=== PATIENT | male | born 1945 | race Caucasian/White ===

== ENCOUNTER → 2016-02-25 | Outpatient (CLI) | payer OTHER ==
[~2016-02-25] MED LIST: ACET-1138 PO; AMLO-110 PO; ASPEC81 PO; ASPI81TA28 PO; ATEN-173 PO; CLB200 PO; DOXY1TAB6 PO; FLVHFA44 INH; LORA-741 PO; ONDA8TAB6 PO; OXYSR10 PO; PRLSR20 PO; RXC5 PO
[2016-02-25 12:54] LABS: BASO % 1.3 %; BASO ABS # 0.07 K/uL (0-0.2); COMPLETE YES; HEMATOCRIT 43.2 % (42-52); IG% 0.4 %; LYMPH % 21.8 %; LYMPH ABS # 1.13 K/uL (1.2-3.4); MEAN CELL VOLUME 87.6 fL (80-100); MEAN CORPUSCULAR HGB CONC 34.3 g/dl (32-36); MEAN PLATELET VOLUME 9.3 fL (7.4-10.4); MONO % 11.6 %; NEUT % 58.9 %; PLATELET COUNT 191 K/uL (130-400); RED BLOOD COUNT 4.93 M/uL (4.7-6.1); WHITE BLOOD COUNT 5.19 K/uL (4.8-10.8)
[2016-02-25 13:06] LABS: ESTIMATED AVERAGE GLUCOSE 128 mg/dl; HA1C FLAG Normal (Normal)
[2016-02-25 13:19] LABS: ALT/SGPT 26 U/L (12-78); AST/SGOT 23 U/L (15-37); BLOOD UREA NITROGEN 16 mg/dl (7-18); BUN/CREATININE RATIO 16.8 (10-20); CALCIUM 8.4 mg/dl (8.5-10.1); CARBON DIOXIDE 29 mmol/L (21-32); CHLORIDE 106 mmol/L (98-107); CREATININE 0.96 mg/dl (0.60-1.40); GLUCOSE 116 mg/dl (70-99); SODIUM 143 mmol/L (136-145)
[2016-02-25 13:23] LABS: ALB/GLOB RATIO 0.9 (0.9-2); ALKALINE PHOSPHATASE 99 U/L (45-117)
--- NOTE | 2016-02-29 13:03 | CODING QUERY MEDICAL NECESSITY ---
SUPPORTING DIAGNOSIS NEEDED A supporting diagnosis is required for the test/procedure performed on this patient in order for us to be reimbursed by the patient's insurance. Please provide a supporting diagnosis for the following test/procedure listed below next to the test name along with your signature. *If there is no additional diagnosis for this patient that would support the following test/procedure please document that below next to the test/procedure. Test(s)/Procedure(s) that require a supporting diagnosis: DOS 02/24 * Hba1c DIAGNOSIS: Provider Signature: Date: Thank you Michelle Srivastava Health Information Management Once completed, please kindly fax back to [phone] For questions please call [phone]
== END | disposition home or self-care (01) ==
LOC: C.LAB 11:26
PROVIDERS: ATTEND Family Medicine
DX: I25.10 Atherosclerotic heart disease of native coronary artery without angina pectoris (principal); E78.5 Hyperlipidemia, unspecified; R73.03 Prediabetes; R97.20 Elevated prostate specific antigen [PSA]

== ENCOUNTER 2016-03-18 05:26 | Inpatient (IN) | payer OTHER ==
[2016-02-25 11:50] VITALS: BMI 35.0
--- NOTE | 2016-02-25 12:17 | PAT Medication Instructions ---
Service Date Feb 25, 2016. Current Home Medication List Amlodipine (Norvasc), 5 MG PO QAM Aspirin (Aspirin Ec), 81 MG PO QAM Atenolol (Tenormin), 25 MG PO QAM Doxycycline Hyclate (Doxycycline Hyclate), 1 TAB PO BID Fluticasone Propionate (Flovent Hfa), 2 PUFFS INH BID PRN for PRN Lorazepam (Ativan), 0.5 MG PO TID PRN for Anxiety Omeprazole (Prilosec), 20 MG PO QAM Medication Instructions For Your Scheduled Surgery Doxycycline Hyclate (Doxycycline Hyclate), 1 TAB PO BID (to be completed prior to surgery) - Take the following medications the morning of surgery with a sip of water: Omeprazole (Prilosec), 20 MG PO QAM Lorazepam (Ativan), 0.5 MG PO TID PRN for Anxiety Fluticasone Propionate (Flovent Hfa), 2 PUFFS INH BID PRN for PRN Amlodipine (Norvasc), 5 MG PO QAM Aspirin (Aspirin Ec), 81 MG PO QAM (okay to take per surgeon instructions) Atenolol (Tenormin), 25 MG PO QAM - Take the following medications as scheduled the night before surgery: Lorazepam (Ativan), 0.5 MG PO TID PRN for Anxiety Fluticasone Propionate (Flovent Hfa), 2 PUFFS INH BID PRN for PRN If you have any questions please call us at [phone] (Jocelynn Yoo PA-C) or [phone] or [phone]
--- NOTE | 2016-02-25 12:50 | DIAGNOSTIC IMAGING REPORT ---
CHEST PREADMISSION(PA/LAT) CLINICAL HISTORY: PAT preoperative evaluation COMPARISON STUDY: No previous studies for comparison. FINDINGS: Prior median sternotomy. Heart is enlarged. Diaphragms smooth. Lungs are clear. IMPRESSION: Cardiomegaly post median sternotomy. No acute process. Electronically signed by: Addy Otoole M.D. 02/25/2016 12:48 PM
[2016-02-25 13:05] LABS: PARTIAL THROMBOPLASTIN RATIO 1.2; PROTHROMBIN TIME (PATIENT) 10.6 SECONDS (9.0-12.0)
--- NOTE | 2016-03-13 22:06 | HISTORY & PHYSICAL EXAMINATION ---
DATE OF ADMISSION: 03/18/2016 PREOPERATIVE HISTORY AND PHYSICAL EXAMINATION SUBJECTIVE CHIEF COMPLAINT: Left knee pain. HISTORY OF PRESENT ILLNESS: The patient is a 70-year-old male who complains of left knee pain. His knee pain and stiffness has been occurring for several years that has been progressively getting worse. He describes the pain as aching and sharp. He has tried cortisone and visco injections in the past with little relief. He has tried NSAIDs as well as physical therapy with no relief. He wishes to proceed with a total left knee arthroplasty. PAST MEDICAL HISTORY: Hypertension, hypercholesterolemia, osteoarthritis, BPH, coronary artery disease. PAST SURGICAL HISTORY: Cardiac bypass surgery in 1995, two stents in 2014, fundoplication x2, cholecystectomy, inguinal hernia surgery. SOCIAL HISTORY: He denies alcohol use. He denies smoking or tobacco product use. He denies IV drug use. He lives in a 1-story house. 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 FAMILY HISTORY: Father has a history of heart attacks. MEDICATIONS: Aspirin 81 mg 1 tab daily, atenolol 25 mg 1 tab daily, Prilosec 20 mg 1 capsule daily, Ambien 5 mg as needed for sleep, lorazepam 0.5 mg 3 times a day as needed, Welchol 625 mg, amlodipine 5 mg 1 tab daily, Flovent 110 mcg. ALLERGIES: ALL STATINS, Lisinopril, Pravachol ZETIA, VASOTEC. REVIEW OF SYSTEMS: He denies fevers, chills, headaches, weight loss, double vision, blurry vision, sore throat, hearing loss, tremors, dizziness, numbness or tingling, tired, thirsty, hot and cold intolerance, abdominal pain, nausea, vomiting, diarrhea, heartburn, chest pain following into the legs or feet, frequency going to the bathroom, pain or burning with urination, incontinence, wheezing, cough, shortness of breath, depression, thoughts to harm herself or harm others, nervousness or anxiousness. He is positive for joint pain, stiffness and swelling of the left knee. OBJECTIVE PHYSICAL EXAMINATION: GENERAL APPEARANCE: The patient is a 70-year-old male sitting in no acute distress, well dressed, well nourished. He is awake, alert and oriented x3. VITAL SIGNS: He is 5 feet 10 inches, 258 pounds, blood pressure 128/76. HEENT: Extraocular movements intact, PERRLA, mucosa is moist. No septal deviation. NECK: Supple, no lymphadenopathy, no JVD, no thyromegaly. HEART: Irregular rate and rhythm but no murmurs or gallops. LUNGS: Clear to auscultation with no wheezing or rhonchi. ABDOMEN: Soft, nontender, nondistended. Normal bowel sounds, no hepatosplenomegaly. EXTREMITIES: Paying particular attention to his left knee, he has pain along the medial joint line. He has his range of motion active flexion to 0-90 degrees, active extension to 0 degrees. He has a mildly positive valgus stress test due to ligament laxity. NEUROLOGIC: Cranial nerves II-XII are intact. Pulses were compared bilaterally and were symmetrical . IMAGING: X-rays of the left knee shows osteophyte formation, medial joint space narrowing, subchondral sclerosis. IMPRESSION: Severe end-stage osteoarthritis of the left knee. PLAN: The patient is scheduled for a left knee arthroplasty. He has failed conservative measures such as NSAIDs, physical therapy, cortisone injections and visco supplementation. He wishes to proceed with the procedure. Risks and benefits were discussed that were included but not limited to blood loss, nerve damage, blood vessel damage, DVT, increased pain, failure to relieve pain, revision surgeries, and anesthesia risks. He understands these risks and wishes to proceed. All questions were answered to his satisfaction. TEX
[2016-03-18] VITALS (8 sets, daily range): BP systolic 129–173; BP diastolic 56–91; PULSE 54–75; TEMP 36.4–36.9; O2SAT 92–96; Ht 182.9 cm; Wt 118.3 kg
[~2016-03-18] VITALS: Ht 182.9 cm; Wt 118.3 kg
[~2016-03-18 05:26] MED LIST changes: -ACET-1138 PO; -ASPEC81 PO; -CLB200 PO; -ONDA8TAB6 PO; -OXYSR10 PO; -RXC5 PO
[2016-03-18] MEDS ORDERED: LACTATED RINGER'S 1000ML 500 ML IV ONE (06:00)
[2016-03-18] MEDS ORDERED: ROPIVACAINE 5MG/ML 30 ML 150 MG, BUPIVACAINE/EPINEPHR 0.5% MPF 30 ML, KETOROLAC TROMETH... INFIL SCH ×7 (06:00)
[2016-03-18] MEDS ORDERED: LACTATED RINGER'S 1000ML 1,000 ML IV SCH (06:00)
[2016-03-18] MEDS ORDERED: LACTATED RINGER'S 1000ML IV SCH (06:00)
[2016-03-18] MEDS ORDERED: GABAPENTIN 300 MG CAP PO SCH (06:00)
[2016-03-18] MEDS ORDERED: FAMOTIDINE 20 MG TAB PO SCH (06:00)
[2016-03-18] MEDS ORDERED: CEFAZOLIN 2000 MG/60 ML D5W 60 ML IV SCH (06:00)
[2016-03-18] MEDS ORDERED: DEXAMETHASONE 4 MG TAB PO SCH (06:00)
[2016-03-18] MEDS ORDERED: ACETAMINOPHEN 500 MG TAB PO SCH (06:00)
[2016-03-18] MEDS ORDERED: CeleBREX 200 MG CAP PO SCH (06:00)
[2016-03-18] MEDS ORDERED: METOCLOPRAMIDE HCL 10 MG TAB PO SCH (06:00)
[2016-03-18] MEDS ORDERED: BUPIVACAINE 0.5 % 5 MG/1 ML PF 10ML VIAL ONE (06:26)
[2016-03-18] MEDS ORDERED: DEXAMETHASONE SOD INJ 4 MG/ML VIAL ONE ×2 (06:26→06:40)
[2016-03-18] MEDS ORDERED: BUPIVACAINE/EPINEPHRINE 0.25% 1:200,000 30 ML VIAL ONE (06:26)
[2016-03-18] MEDS ORDERED: ORTHO JOINT ANESTHETIC ONE (06:38)
[2016-03-18] MEDS ORDERED: MIDAZOLAM HCL 1 MG/ML 2ML VIAL ONE ×2 (06:40→07:43)
[2016-03-18] MEDS ORDERED: ONDANSETRON INJ 2 MG/ML 2 ML VIAL ONE (06:40)
[2016-03-18] MEDS ORDERED: LIDOCAINE HCL 2% 2 ML VIAL (20MG/ML) ONE (06:40)
[2016-03-18] MEDS ORDERED: FENTANYL CITRATE INJ 50 MCG/1 ML 2 ML VIAL ONE (06:40)
[2016-03-18] MEDS ORDERED: PROPOFOL IV EMULSION 10 MG/ML 20 ML VIAL IV ONE (06:40)
--- NOTE | 2016-03-18 06:49 | History & Physical Bridge Note ---
H&P Re-Evaluation Bridge Note: I have examined the patient, reviewed the History & Physical and in the interval since the performance of the History & Physical I have noted the following changes of clinical significance: No changes noted
[2016-03-18] MEDS ORDERED: NURSING VERBAL MED ORDER STA (07:19)
[2016-03-18] MEDS: TRANEXAMIC ACID AMP 1,000 MG in NSS 100ML IV SCH ×2 (08:00→08:10)
[2016-03-18] MEDS ORDERED: BACITRACIN 50000 UNIT VIAL IR ONE (08:52)
[2016-03-18] MEDS ORDERED: POVIDONE-IODINE OP SOLN 30 ML BTL TOP ONE (08:52)
--- NOTE | 2016-03-18 08:59 | [facility] Post Operative Brief Note ---
Immediate Operative Summary Operative Date Mar 18, 2016. Pre-Operative Diagnosis Severe End-Stage Osteoarthritis of Left Knee Post-Operative Diagnosis Same as preoperative Procedure(s) Performed Left Total Knee Arthroplasty, Cemented Surgeon Dr. Santosh Marin Machine Carton Marker Surgeon(s) Steve Minor PA-C, Tree Hurd PA-C Estimated Blood Loss 20ml Findings above Specimens A.) Left Knee Bone and Tissue Fragments Drains 2 hemovac Anesthesia spinal Complication(s) None Disposition Recovery Room / PACU
[2016-03-18] MEDS ORDERED: ZOLPIDEM TARTRATE 5 MG TAB PO PRN (09:00)
[2016-03-18] MEDS ORDERED: MoRPHine SULFATE 2 MG/ML CARP IV PRN (09:00)
[2016-03-18] MEDS ORDERED: FLUTICASONE PROP HFA INH 44 MCG INHALER INH PRN (09:00)
[2016-03-18] MEDS ORDERED: ALUMINUM/MAGNESIUM/SIMETH (MAALOX MAX) 30 ML UDC PO PRN (09:00)
[2016-03-18] MEDS ORDERED: OXYCODONE HCL IR 5 MG TAB (IMMEDIATE RELEASE) PO PRN (09:00)
[2016-03-18] MEDS ORDERED: DiphenhydrAMINE HCL 50 MG/ML VIAL IV PRN (09:00)
[2016-03-18] MEDS ORDERED: NON-FORMULARY MEDICATION (Omeprazole (Prilosec) 20 MG) PO SCH (09:00)
[2016-03-18] MEDS ORDERED: ONDANSETRON INJ 2 MG/ML 2 ML VIAL IV PRN ×2 (09:00→09:30)
[2016-03-18] MEDS ORDERED: TAMSULOSIN HCL 0.4 MG CAP PO PRN (09:00)
[2016-03-18] MEDS ORDERED: LORAZEPAM 0.5 MG TAB PO PRN (09:00)
[2016-03-18] MEDS ORDERED: METOCLOPRAMIDE HCL INJ 5 MG/ML 2 ML VIAL IV PRN (09:00)
[2016-03-18] MEDS ORDERED: MAGNESIUM HYDROXIDE SUSP 30 ML UDC PO PRN (09:00)
[2016-03-18] MEDS ORDERED: FENTANYL CITRATE INJ 50 MCG/1 ML 2 ML VIAL IV PRN (09:30)
[2016-03-18] MEDS ORDERED: ATROPINE SULFATE 0.1 MG/ML 5ML SYR IV PRN (09:30)
[2016-03-18] MEDS ORDERED: EpHEDrine SULFATE INJ 50 MG/ML AMP IV PRN (09:30)
--- NOTE | 2016-03-18 09:49 | Anesthesiology Progress Note ---
Anesthesia Post Op Note Date & Time Mar 18, 2016 at 09:49 Vital Signs Pain Intensity: 0 Vital Signs Past 12 Hours Date Time Temp Pulse Resp B/P Pulse Ox O2 Delivery O2 Flow Rate FiO2 03/18/16 09:40 52 16 114/69 98 Nasal Cannula 2 03/18/16 09:30 36.2 59 16 129/68 96 Nasal Cannula 2 03/18/16 06:19 36.9 54 20 173/91 95 Room Air Notes Mental Status: alert / awake / arousable, participated in evaluation Pt Amnestic to Procedure: Yes Nausea / Vomiting: adequately controlled Pain: adequately controlled Airway Patency, RR, SpO2: stable & adequate BP & HR: stable & adequate Hydration State: stable & adequate Neuraxial Anesthesia: was administered, sensory block is resolving Anesthetic Complications: no major complications apparent
--- NOTE | 2016-03-18 10:04 | OPERATIVE REPORT ---
DATE OF OPERATION: 03/18/2016 PREOPERATIVE DIAGNOSIS: Left knee degenerative joint disease. POSTOPERATIVE DIAGNOSIS: Same. PROCEDURE: Left total knee arthroplasty. SURGEON: Dr. Marin. SLAG PRODUCTION WORKER: Tree Hurd PA-C and Steve Minor PA-C who was necessary for assistance of procedure with positioning, prepping, draping, retraction and closure. ANESTHESIA: Spinal with adductor canal block. SPECIMEN: Bone and tissue. DRAINS: One medium Hemovac. IMPLANTS: Flores \T\ Nephew Journey version 2, femur 7, tibia 6, poly 9, patella 32 oval. COMPLICATIONS: None. ESTIMATED BLOOD LOSS: 20 mL. INDICATIONS: The patient is a 70-year-old male with longstanding degenerative joint disease of bilateral knees. He has failed conservative measures including cortisone injection, physical therapy and anti-inflammatory medications. Failing conservative measures, he wished to proceed with left total knee arthroplasty. Risks, benefits, and alternatives of surgery including but not limited to infection, DVT, pain, sepsis, need for urgent surgery, failure to relieve all symptoms, damage to blood vessels, damage to nerves, risks of anesthesia discussed with the patient and he wished to proceed. OPERATION AND FINDINGS: DESCRIPTION OF PROCEDURE: The patient was identified, laterality was confirmed and marked. He received a preoperative antibiotic as well as a spinal and adductor canal block. Left lower extremity had a well-padded tourniquet applied and the limb was prepped and draped in usual sterile manner with ChloraPrep. Limb was exsanguinated and tourniquet was inflated. I made a standard anterior incision sharply incising the skin utilizing Bovie electrocautery to achieve hemostasis. I made a medial parapatellar arthrotomy, mobilized the patella laterally. I excised the anterior horns of the medial and lateral menisci back. I removed the fat pad and then pinned in place a distal femoral cutting guide, which was a patient matched guide, made my distal femoral resection and then pinned in place a size 5-in-1 cutting guide, made my anterior, posterior chamfer cuts. I then removed the remaining portions of the meniscus as well as the cruciates. I then pinned into place my tibial cutting guide, made my tibial resection and then sized and positioned for a size 6 tibia cut for the post and pinned this into place. I then removed the posterior osteophytes off the femur. He was relatively tight, so we elevated some of the posterior capsule off the backside of the femur. He had a fair number of loose bodies posteriorly that were removed. I then placed the trial femur into place, cut for the trochlear component and then trialed with a 9 poly, had good range of motion, good stability with a 9 poly. I then prepared the patella with a freehand cut and then sized and drilled for a size 32 patella. We had good tracking to the patella. No lateral release was required. All the trial components were removed. Wound was thoroughly irrigated. The deep tissues were anesthetized with an Orthomix solution and then with Simplex HV with gent cement. We cemented the definitive components. This was Flores \T\ Nephew Journey version 2, femur size 7, tibia size 6, poly 9, patella 32 oval. Betadine soak was performed. The drain was then placed. The arthrotomy was closed with interrupted #1 Vicryl sutures, subcutaneous tissue with interrupted 2-0 Vicryl suture and skin with elver. Sterile dressing was applied and tourniquet was released. All needle and sponge counts were correct at the end of the procedure. The patient was transferred to the PACU in stable condition without apparent complication. I attest to the content of the Intraoperative Record and any orders documented therein. Any exceptio ns are noted below.
--- NOTE | 2016-03-18 10:35 | DIAGNOSTIC IMAGING REPORT ---
TWO VIEWS LEFT KNEE CLINICAL HISTORY: Postoperative examination. FINDINGS: AP and crosstable lateral portable views of the left knee are obtained. A left knee arthroplasty is in near anatomic alignment. There has been undersurface remodeling of the patella. No acute fracture is seen. There are expected postoperative changes around the knee including skin clips, a surgical drain, soft tissue edema, and subcutaneous gas. IMPRESSION: Expected postoperative changes status post left knee arthroplasty. No acute fracture is seen. Electronically signed by: Thomas Jansen M.D. 03/18/2016 10:33 AM Dictated Date/Time: 03/18/2016 10:33 AM
[2016-03-18] MEDS: CEFAZOLIN IV 2,000 MG in DEXTROSE 5% 50ML 50 ML IV SCH ×2 (13:14→21:57)
[2016-03-18] MEDS: FERROUS GLUCONATE 324 MG TAB PO SCH ×2 (13:15→18:13)
[2016-03-18] MEDS: KETOROLAC TROMETHAMINE 15 MG/ML VIAL IV. SCH ×2 (13:15→18:13)
[2016-03-18] MEDS: ACETAMINOPHEN 500 MG TAB PO SCH ×2 (13:16→21:58)
[2016-03-18] MEDS: D5W AND 1/2NSS + 20MEQ KCL 1,000 ML IV SCH (13:18)
[2016-03-18] MEDS: DOCUSATE SODIUM 100 MG CAP PO SCH (21:56)
[2016-03-18] MEDS: ASPIRIN 81 MG ECTAB PO SCH (21:57)
[2016-03-18] MEDS: OXYCODONE HCL 10 MG TABCR (OXYCONTIN) PO SCH (21:57)
[2016-03-19] MEDS: D5W AND 1/2NSS + 20MEQ KCL 1,000 ML IV SCH ×2 (00:03→13:41)
[2016-03-19] MEDS: KETOROLAC TROMETHAMINE 15 MG/ML VIAL IV. SCH ×2 (00:04→05:20)
[2016-03-19 03:45] VITALS: BP 135/60; PULSE 69; TEMP 36.4; O2SAT 93
[2016-03-19] MEDS: ACETAMINOPHEN 500 MG TAB PO SCH ×3 (05:20→21:08)
[2016-03-19 06:27] LABS: HEMATOCRIT 36.6 % (42-52); MEAN CELL VOLUME 86.5 fL (80-100); MEAN CORPUSCULAR HGB CONC 34.7 g/dl (32-36); MEAN PLATELET VOLUME 9.8 fL (7.4-10.4); PLATELET COUNT 185 K/uL (130-400); RED BLOOD COUNT 4.23 M/uL (4.7-6.1); WHITE BLOOD COUNT 14.79 K/uL (4.8-10.8)
[2016-03-19 06:58] LABS: BUN/CREATININE RATIO 19.1 (10-20); CREATININE 0.99 mg/dl (0.60-1.40); POTASSIUM 3.8 mmol/L (3.5-5.1)
[2016-03-19] MEDS ORDERED: DEXAMETHASONE 4 MG TAB PO ONE (07:30)
[2016-03-19 08:18] VITALS: BP 122/58; PULSE 65; TEMP 36.7; O2SAT 96
[2016-03-19] MEDS: AMLODIPINE BESYLATE 5 MG TAB PO SCH (09:07)
[2016-03-19] MEDS: ASPIRIN 81 MG ECTAB PO SCH ×2 (09:07→21:09)
[2016-03-19] MEDS: MULTIVITAMIN TAB PO SCH (09:08)
[2016-03-19] MEDS: PANTOprazole SOD 40 MG TAB PO SCH (09:09)
[2016-03-19] MEDS: OXYCODONE HCL 10 MG TABCR (OXYCONTIN) PO SCH ×2 (09:10→21:07)
[2016-03-19] MEDS: DOCUSATE SODIUM 100 MG CAP PO SCH ×2 (09:11→21:09)
[2016-03-19] MEDS: FERROUS GLUCONATE 324 MG TAB PO SCH ×3 (09:11→18:17)
[2016-03-19 09:31] VITALS: O2SAT 96
[2016-03-19 11:59] VITALS: BP 128/74; PULSE 60; TEMP 36.6; O2SAT 96
--- NOTE | 2016-03-19 13:11 | Orthopedic Progress Note ---
Orthopedic Progress Note Date of Service Mar 19, 2016. Subjective Post OP Day: 1 Reports: feeling well, pain controlled w PO medications, Denies: SOB, chest pain , light headedness, nausea / vomiting Objective calves soft nontender, N/V intact, capillary refill less than 2 sec., dressing C /D/I, A&O x3, toes mobile, hemovac drainage Date Time Temp Pulse Resp B/P Pulse Ox O2 Delivery O2 Flow Rate FiO2 03/19/16 11:59 36.6 60 16 128/74 96 Room Air 03/19/16 09:31 96 Room Air 03/19/16 08:18 36.7 65 16 122/58 96 Room Air 03/19/16 07:45 Room Air 03/19/16 03:45 36.4 69 18 135/60 93 Room Air 03/19/16 00:01 Room Air 03/18/16 23:12 36.6 75 18 144/79 94 Room Air 03/18/16 19:39 36.4 73 18 132/78 95 Room Air 03/18/16 16:00 Room Air 03/18/16 15:02 36.4 60 16 153/70 94 Room Air 03/18/16 13:34 36.5 59 16 143/56 95 Room Air Laboratory Results 24 Hours: Test 03/19/16 05:35 Hematocrit 36.6 % Hemoglobin 12.7 g/dL Assessment & Plan Assessment: POD#1 s/p Left TKA Inhouse Planning Pain Management: Celebrex, Oxycontin, PO Tylenol, Oxy IR DVT Prophylaxis: TEDs, SCDs, ASA Discharge Planning Discharge Planning: home with oppt (plan for ) Therapy: Physical Therapy, Occupational Therapy (Plan for discharge tomorrow with OPPT)
[2016-03-19 15:18] VITALS: BP 142/80; PULSE 68; TEMP 36.5; O2SAT 93
[2016-03-19] MEDS: CeleBREX 200 MG CAP PO SCH (21:08)
[2016-03-19] MEDS ORDERED: CLB200 PO (21:42)
[2016-03-19] MEDS ORDERED: ACET-1138 PO (21:42)
[2016-03-19] MEDS ORDERED: OXYSR10 PO (21:42)
[2016-03-19] MEDS ORDERED: RXC5 PO (21:42)
[2016-03-19] MEDS ORDERED: ONDA8TAB6 PO (21:42)
[2016-03-19] MEDS ORDERED: ASPEC81 PO (21:42)
--- NOTE | 2016-03-19 21:44 | Discharge Instructions ---
Discharge Instructions Admission Reason for Admission: Left Knee Osteoarthrtis Discharge Discharge Diagnosis / Problem: Left Total Knee Arthroplasty Discharge Goals Goal(s): Decrease discomfort, Improve function, Increase independence, Therapeutic intervention Activity Recommendations Activity Limitations: per Instructions/Follow-up section ACTIVITY RECOMMENDATIONS: SELF CARE INSTRUCTIONS AFTER TOTAL KNEE REPLACEMENT A. You may need to continue a physical therapy program after discharge from the hospital. There are several options available to you. Your doctor will assist you in selecting the best one for you. 1. An out-patient facility 2 to 3 times a week for therapy or home therapy. 2. Continue working on all exercises taught to you in the hospital. Your goals should be to increase bending of your knee to 90 degrees and beyond and to fully straighten your knee. B. You may progress at your own pace from walking with a walker or crutches to a cane; then to no assistive devices. C. Make walking a part of your daily routine. Be up as much as comfortable with rest periods throughout the day. Rest with leg elevation is very important. Use the ice wrap frequently for the first 3-4 weeks. D. There are no restrictions on activities. You may ride in a car, shop, participate in medical insurance coder and all social activities. E. Wear the long elastic stockings (MIKIE hose) 20 hours a day for 2 weeks after surgery. They can be removed several times a day for laundering and for a bath. F. You may shower, no tub baths until cleared by your doctor. SPECIAL CARE INSTRUCTIONS: VERY IMPORTANT TO READ AND REVIEW A. There are a few signs you need to watch for after you are home. Call [facility] [place] if you notice any of the followin. Increased severe knee pain. Some pain is expected especially when you exercise. 2. Increased swelling in your leg or knee; pain or swelling of the calf muscle in either lower leg. 3. Any fluid drainage from the incision. 4. Shortness of breath or chest pain. B. Please call [facility] at if you have any concerns or questions about your operation or recovery. The doctor or his nurse will return your call promptly. C. You must take antibiotics before dental work, bladder, bowel or other surgery. Your doctor will provide you with a permanent care to carry describing this precaution. IMPORTANT: * REMEMBER TO TAKE ASPIRIN, 81 MG, TWICE DAILY FOR 4 WEEKS UNLESS OTHERWISE DIRECTED. THIS IS YOUR BLOOD THINNER. * HIGH RISK PATIENTS MAY BE PRESCRIBED A STRONGER BLOOD THINNER. THIS WILL BE PROVIDED AT DISCHARGE. * CALL IF INCREASED PAIN, REDNESS, DRAINAGE OR FEVER GREATER THAT 101. * WEAR MIKIE HOSE 20 HOURS PER DAY FOR 2 WEEKS. * YOU MAY HAVE A LARGE BAND-AID LIKE DRESSING (SILVERON). THIS WILL REMAIN ON YOUR INCISION FOR 7 DAYS, THEN CAN BE REMOVED. IF INCISION IS LEAKING THROUGH DRESSING, CALL THE OFFICE . FOLLOW UP VISIT: If appointment is not already scheduled: Please call [facility] [place] to make a follow-up appointment for 2 weeks after your surgery at . . Current Hospital Diet Patient's current hospital diet: Regular Diet Discharge Diet Recommended Diet: Regular Diet Procedures Procedures Performed: Left Total Knee Arthroplasty, Cemented Pending Studies Studies pending at discharge: no Laboratory Results Hemoglobin A1c Test 02/25/16 12:26 Range/Units Estimated Average Glucose 128 mg/dl Hemoglobin A1c 6.1 H 4.5-5.6 % Medical Emergencies . Who to Call and When: Medical Emergencies: If at any time you feel your situation is an emergency, please call 911 immediately. . Non-Emergent Contact Non-Emergency issues call your: Primary Care Provider . "Provider Documentation" section prepared by Lizz Mcintosh. VTE Core Measure Inpt VTE Proph given/why not?: Other Anticoagulation, T.E.D. Stockings, SCD's
[2016-03-19 23:00] VITALS: BP 147/75; PULSE 59; TEMP 36.5; O2SAT 93
[2016-03-20] MEDS: ACETAMINOPHEN 500 MG TAB PO SCH (05:24)
[2016-03-20 06:31] VITALS: BP 144/78; PULSE 66; TEMP 36.6; O2SAT 96
[2016-03-20] MEDS: FERROUS GLUCONATE 324 MG TAB PO SCH (08:41)
[2016-03-20] MEDS: ASPIRIN 81 MG ECTAB PO SCH (08:42)
[2016-03-20] MEDS: MULTIVITAMIN TAB PO SCH (08:42)
[2016-03-20] MEDS: AMLODIPINE BESYLATE 5 MG TAB PO SCH (08:42)
[2016-03-20] MEDS: PANTOprazole SOD 40 MG TAB PO SCH (08:43)
[2016-03-20] MEDS: OXYCODONE HCL 10 MG TABCR (OXYCONTIN) PO SCH (08:43)
[2016-03-20] MEDS: CeleBREX 200 MG CAP PO SCH (08:43)
[2016-03-20] MEDS: DOCUSATE SODIUM 100 MG CAP PO SCH (08:44)
--- NOTE | 2016-03-20 08:48 | Orthopedic Progress Note ---
Orthopedic Progress Note Date of Service Mar 20, 2016. Subjective Post OP Day: 2 Reports: feeling well, pain controlled w PO medications, Denies: SOB, calf pain , chest pain, light headedness Objective calves soft nontender, N/V intact, capillary refill less than 2 sec., dressing C /D/I, A&O x3, toes mobile Date Time Temp Pulse Resp B/P Pulse Ox O2 Delivery O2 Flow Rate FiO2 03/20/16 06:31 36.6 66 20 144/78 96 Room Air 03/19/16 23:00 36.5 59 16 147/75 93 Room Air 03/19/16 19:15 Room Air 03/19/16 15:18 36.5 68 20 142/80 93 Room Air 03/19/16 11:59 36.6 60 16 128/74 96 Room Air 03/19/16 09:31 96 Room Air Assessment & Plan Assessment: POD#2 s/p Left TKA Inhouse Planning Pain Management: Celebrex, Oxycontin, PO Tylenol, Oxy IR DVT Prophylaxis: TEDs, SCDs, ASA Discharge Planning Discharge Planning: home with oppt (plan for ) Therapy: Physical Therapy, Occupational Therapy Discharge Planning Notes: plan for discharge today with OPPT
[2016-03-20 09:57] VITALS: BP 144/78; PULSE 66; TEMP 36.6; O2SAT 96
--- NOTE | 2016-03-22 16:39 | DISCHARGE SUMMARY ---
ADMISSION DIAGNOSIS: Left knee osteoarthritis. DISCHARGE DIAGNOSIS: Left total knee arthroplasty. CONSULTS: None. PROCEDURES: On 03/18/2016 the patient had a left total knee arthroplasty. HISTORY OF PRESENT ILLNESS: The patient is a 70-year-old male that presented to the office with knee pain. The knee pain was chronic and nontraumatic. He had failed conservative therapy which includes NSAIDs, physical therapy, cortisone injections and viscosupplementation. He wishes to proceed with a left total knee arthroplasty. HOSPITAL COURSE: Postop day 1 the patient was feeling well. He denied shortness of breath, chest pain, lightheadedness, nausea or vomiting. Postop day 2 the patient was also feeling well. Pain was controlled with p.o. medication. He denied shortness of breath, calf pain, chest pain, lightheadedness. His plan was to be discharged today with outpatient physical therapy with discharge condition stable. DISPOSITION: Home self care. INSTRUCTIONS: The patient may continue physical therapy after discharge from the hospital. He is to go 2-3 times a week. He is to wear long elastic stockings 20 hours a day for 2 weeks after surgery. He may shower. No bathtub. He is to call [facility] if he has increasing severe knee pain, increased swelling or drainage from the incision, shortness of breath or chest pain. MEDICATIONS: Acetaminophen 1000 mg by mouth every 8 hour, aspirin 81 mg twice a day, Celebrex 200 mg by mouth twice a day, Zofran 8 mg by mouth every 8 hours as needed for nausea, OxyContin 10 mg by mouth every 12 hours, oxycodone 1-2 tablets by mouth every 4 hours as needed for pain, amlodipine 5 mg by mouth daily in the morning, atenolol 25 mg by mouth daily in the morning, Flovent 2 puffs twice daily as needed for shortness of breath, lorazepam 0.5 mg by mouth 3 times daily as needed for anxiety, omeprazole 20 mg by mouth daily in the morning. FOLLOWUP: He is to schedule an appointment with Dr. Marin or his PA 12-14 days after his surgery. TEX
== END 2016-03-20 12:24 | disposition home or self-care (01) | DRG 470 ==
LOC: ENRESERVDT → ENRESERVTM → C.ACU 05:26 → C.3E 06:45 → EDBEDREQ 09:37
PROVIDERS: ADMIT Orthopaedic Surgery; ATTEND Orthopaedic Surgery
PROC: 0SRD0J9 Replacement of Left Knee Joint with Synthetic Substitute, Cemented, Open Approach (ICD-10-PCS; principal; 2016-03-18 07:00)
DX: M17.0 Bilateral primary osteoarthritis of knee (principal); M23.42 Loose body in knee, left knee; I10 Essential (primary) hypertension; E78.00 Pure hypercholesterolemia, unspecified; N40.0 Benign prostatic hyperplasia without lower urinary tract symptoms; I25.10 Atherosclerotic heart disease of native coronary artery without angina pectoris; R00.1 Bradycardia, unspecified; K21.9 Gastro-esophageal reflux disease without esophagitis; D64.9 Anemia, unspecified; F41.9 Anxiety disorder, unspecified; E66.9 Obesity, unspecified; Z68.35 Body mass index [BMI] 35.0-35.9, adult; Z95.1 Presence of aortocoronary bypass graft; Z95.5 Presence of coronary angioplasty implant and graft; Z79.51 Long term (current) use of inhaled steroids; Z79.82 Long term (current) use of aspirin; Z79.899 Other long term (current) drug therapy

== ENCOUNTER 2017-03-17 05:07 | Inpatient (IN) | payer OTHER ==
[2017-03-06 12:46] VITALS: BMI 35.0
--- NOTE | 2017-03-06 13:25 | PAT Medication Instructions ---
Service Date Mar 06, 2017. Current Home Medication List Acetaminophen (Tylenol), 2 TAB PO Q8 PRN for Pain or Fever Amlodipine (Norvasc), 5 MG PO QAM Aspirin (Aspirin Ec), 81 MG PO QAM Atenolol (Tenormin), 25 MG PO QAM Colesevelam Hcl (Welchol), 2 TAB PO TID Fluticasone Propionate (Flovent Hfa), 2 PUFFS INH BID PRN for PRN Ibuprofen (Advil), 400 MG PO DAILY PRN for Pain Lorazepam (Ativan), 0.5 MG PO TID PRN for Anxiety Multivitamin (Multivitamin), 1 TAB PO QAM Nitroglycerin (Nitrostat), 0.4 MG UT PRN PRN for CHEST PAIN Omeprazole (Prilosec), 20 MG PO BID Ondansetron Hcl (Zofran), 8 MG PO Q8 PRN for Nausea Zolpidem Tartrate (Ambien), 5 MG PO HS PRN for Sleep Medication Instructions For Your Scheduled Surgery -Contact your surgeon for instructions: Ibuprofen (Advil), 400 MG PO DAILY PRN for Pain -Continue as directed: Nitroglycerin (Nitrostat), 0.4 MG UT PRN PRN for CHEST PAIN - Hold the following medications 24 hours prior to surgery: Colesevelam Hcl (Welchol), 2 TAB PO TID - Hold the following medications the morning of surgery: Multivitamin (Multivitamin), 1 TAB PO QAM - Take the following medications the morning of surgery with a sip of water: Omeprazole (Prilosec), 20 MG PO BID Ondansetron Hcl (Zofran), 8 MG PO Q8 PRN for Nausea (if needed) Zolpidem Tartrate (Ambien), 5 MG PO HS PRN for Sleep (if needed) Lorazepam (Ativan), 0.5 MG PO TID PRN for Anxiety (if needed) Fluticasone Propionate (Flovent Hfa), 2 PUFFS INH BID PRN for PRN (if needed) Amlodipine (Norvasc), 5 MG PO QAM Aspirin (Aspirin Ec), 81 MG PO QAM Atenolol (Tenormin), 25 MG PO QAM Acetaminophen (Tylenol), 2 TAB PO Q8 PRN for Pain or Fever (if needed, can be taken up to four hours before surgery) - Take the following medications as scheduled the night before surgery: Omeprazole (Prilosec), 20 MG PO BID Ondansetron Hcl (Zofran), 8 MG PO Q8 PRN for Nausea (if needed) Zolpidem Tartrate (Ambien), 5 MG PO HS PRN for Sleep (if needed) Lorazepam (Ativan), 0.5 MG PO TID PRN for Anxiety (if needed) Fluticasone Propionate (Flovent Hfa), 2 PUFFS INH BID PRN for PRN (if needed) Acetaminophen (Tylenol), 2 TAB PO Q8 PRN for Pain or Fever (if needed) If you have any questions please call us at [phone] or [phone] or [phone]
--- NOTE | 2017-03-06 14:04 | DIAGNOSTIC IMAGING REPORT ---
CHEST 2 VIEWS ROUTINE HISTORY: Preop. COMPARISON: Chest 02/25/2016. FINDINGS: The heart remains mildly enlarged. There are poststernotomy changes. Low lung volumes. No new focal lung consolidations. No evidence for pulmonary edema. No pleural effusions. No pneumothorax. IMPRESSION: Stable cardiomegaly. Otherwise, no acute process within the chest. Electronically signed by: Chris Lassiter M.D. 03/06/2017 2:03 PM Dictated Date/Time: 03/06/2017 2:00 PM
[2017-03-06 14:31] LABS: BASO % 1.4 %; BASO ABS # 0.08 K/uL (0-0.2); EOS % 5.1 %; EOS ABS # 0.29 K/uL (0-0.5); HEMATOCRIT 47.5 % (42-52); HEMOGLOBIN 16.5 g/dL (14.0-18.0); IG# 0.01 K/uL (0.00-0.02); LYMPH % 22.8 %; MEAN CELL VOLUME 90.8 fL (80-100); MEAN CORPUSCULAR HEMOGLOBIN 31.5 pg (25-34); MEAN CORPUSCULAR HGB CONC 34.7 g/dl (32-36); MEAN PLATELET VOLUME 9.8 fL (7.4-10.4); MONO % 9.1 %; MONO ABS # 0.52 K/uL (0.11-0.59); NEUT % 61.4 %; PLATELET COUNT 193 K/uL (130-400); RED CELL DISTRIBUTION WIDTH CV 13.4 % (11.5-14.5); RED CELL DISTRIBUTION WIDTH SD 43.9 fL (36.4-46.3)
[2017-03-06 14:45] LABS: PTT PATIENT 29.2 SECONDS (21.0-31.0)
[2017-03-06 15:31] LABS: ALBUMIN 3.3 gm/dl (3.4-5.0); CALCIUM 8.7 mg/dl (8.5-10.1); CREATININE 0.91 mg/dl (0.60-1.40); POTASSIUM 3.5 mmol/L (3.5-5.1)
[2017-03-06 15:53] LABS: HEMOGLOBIN A1C 6.2 % (4.5-5.6)
--- NOTE | 2017-03-13 09:03 | History and Physical ---
History & Physical Date Mar 13, 2017. Chief Complaint Right knee pain History of Present Illness The patient is a 71 year old male with complaints of right knee pain for several years. He has tried conservative therapy with minimal relief. He would like to proceed with a Right total knee arthroplasty. Past Medical/Surgical History Medical Problems: (1) DJD (degenerative joint disease) of knee Additional History Hepatic Disease: No Endocrine Disorder: No Kidney Disease: No Hypertension: No Heart Disease: No Bleeding Tendencies: No Infectious Diseases: No Allergies Coded Allergies: Enalapril (Verified Allergy, Unknown, SEVERE HEADACHE, 03/06/17) Statins (Verified Allergy, Unknown, SEVERE MUSCLE ACHES, 03/06/17) Lisinopril (Verified Adverse Reaction, Unknown, COUGH, 03/06/17) Home Medications Scheduled Amlodipine (Norvasc), 5 MG PO QAM Aspirin (Aspirin Ec), 81 MG PO QAM Atenolol (Tenormin), 25 MG PO QAM Colesevelam Hcl (Welchol), 2 TAB PO TID Multivitamin (Multivitamin), 1 TAB PO QAM Omeprazole (Prilosec), 20 MG PO BID Scheduled PRN Acetaminophen (Tylenol), 2 TAB PO Q8 PRN for Pain or Fever Fluticasone Propionate (Flovent Hfa), 2 PUFFS INH BID PRN for PRN Ibuprofen (Advil), 400 MG PO DAILY PRN for Pain Lorazepam (Ativan), 0.5 MG PO TID PRN for Anxiety Nitroglycerin (Nitrostat), 0.4 MG UT PRN PRN for CHEST PAIN Ondansetron Hcl (Zofran), 8 MG PO Q8 PRN for Nausea Zolpidem Tartrate (Ambien), 5 MG PO HS PRN for Sleep Physical Examination Skin: warm/dry, no rash Eyes: normal inspection, EOMI ENT: normal ENT inspection Head: normocephalic, atraumatic Neck: supple, no adenopathy Respiratory/Chest: lungs clear, normal breath sounds Cardiovascular: regular rate, rhythm, no murmur Abdomen / GI: normal bowel sounds, non tender Extremities: normal inspection, + pertinent finding (Medial joint line tenderness. ) Neurologic/Psych: no motor/sensory deficits, alert, oriented x 3 Diagnosis Primary osteoarthritis of Right knee Plan of Treatment Patient is scheduled for a Right total knee arthroplasty. Patient has failed conservative therapy and would like to proceed with scheduled surgery. Risks and benefits were discussed with the patient and they wish to proceed. All questions were answered to their satisfaction.
[~2017-03-17] VITALS: Ht 185.4 cm; Wt 120.1 kg
[2017-03-17] VITALS (8 sets, daily range): BP systolic 126–157; BP diastolic 75–92; PULSE 60–72; TEMP 36.6–37; O2SAT 92–97; Ht 185.4 cm; Wt 120.1 kg
[~2017-03-17 05:07] MED LIST changes: +ACET-1256 PO; -DOXY1TAB6 PO; +IBUP-1050 PO; +MULT-506 PO; +NTRGSL/4 UT; +ONDA8TAB6 PO; +WLC625 PO; +ZOLP5TAB PO
[2017-03-17] MEDS ORDERED: ROPIVACAINE 5MG/ML 30 ML 150 MG, BUPIVACAINE 0.5% MPF INJ 30 ML, EpINEphrine HCL INJ 0.... INFIL SCH ×8 (06:00)
[2017-03-17] MEDS ORDERED: LACTATED RINGER'S 1000ML 500 ML IV SCH (06:00)
[2017-03-17] MEDS ORDERED: CeleBREX 200 MG CAP PO SCH (06:00)
[2017-03-17] MEDS ORDERED: DEXAMETHASONE 4 MG TAB PO SCH (06:00)
[2017-03-17] MEDS ORDERED: CEFAZOLIN 3000MG IV PUSH 15 ML IV SCH (06:00)
[2017-03-17] MEDS ORDERED: ACETAMINOPHEN 500 MG TAB PO SCH (06:00)
[2017-03-17] MEDS ORDERED: FAMOTIDINE 20 MG TAB PO SCH (06:00)
[2017-03-17] MEDS ORDERED: LACTATED RINGER'S 1000ML 1,000 ML IV SCH (06:00)
[2017-03-17] MEDS ORDERED: GABAPENTIN 300 MG CAP PO SCH (06:00)
[2017-03-17] MEDS ORDERED: LACTATED RINGER'S 1000ML IV SCH (06:00)
[2017-03-17] MEDS ORDERED: METOCLOPRAMIDE HCL 10 MG TAB PO SCH (06:00)
[2017-03-17] MEDS ORDERED: ROPIVACAINE 0.5% 5 MG/ML 30 ML VIAL ONE (06:21)
[2017-03-17] MEDS ORDERED: FENTANYL CITRATE INJ 50 MCG/1 ML 2 ML VIAL ONE (06:21)
[2017-03-17] MEDS ORDERED: MIDAZOLAM HCL 1 MG/ML 2ML VIAL ONE (06:21)
[2017-03-17] MEDS ORDERED: BUPIVACAINE 0.5 % 5 MG/1 ML PF 10ML VIAL ONE (06:21)
[2017-03-17] MEDS ORDERED: PROPOFOL IV EMULSION 10 MG/ML 20 ML VIAL IV ONE (06:21)
[2017-03-17] MEDS ORDERED: BACITRACIN 50000 UNIT VIAL ONE (06:26)
[2017-03-17] MEDS ORDERED: ORTHO JOINT ANESTHETIC ONE (06:26)
[2017-03-17] MEDS ORDERED: POVIDONE-IODINE OP SOLN 30 ML BTL ONE (06:26)
[2017-03-17] MEDS: TRANEXAMIC ACID INJ 1,000 MG in SYRINGE 0 ML IV SCH ×2 (06:30→06:57)
--- NOTE | 2017-03-17 08:48 | [facility] Operative Report ---
Operative Report Operative Date Mar 17, 2017. Pre-Operative Diagnosis Primary Osteoarthritis Right Knee Post-Operative Diagnosis Primary Osteoarthritis Right Knee Procedure(s) Performed Right Total Knee Arthroplasty Surgeon Dr. Marin Tuber Machine Operator Helper Surgeon(s) JONNY Abbasi Estimated Blood Loss 20 ml Findings as above Specimens A. Right Knee Bone and Tissue Drains 2 hemovac Anesthesia spinal Complication(s) None Disposition Recovery Room / PACU Indications The patient is a 71-year-old male long-standing osteoarthritis the right knee. He has failed conservative measures including injections anti-inflammatories and rehabilitation. He is [id number] medial compartment with osteophyte formation in all 3 compartments. He wishes to proceed with a right total knee arthroplasty. Description of Procedure Risks benefits and alternatives of surgery including but not limited to infection, DVT, pain, stiffness, need for surgery, damage to blood vessels, damage to nerves or risks of anesthesia were discussed with the patient and they wished to proceed. The patient was identified and the laterality was confirmed and marked. They received a preoperative antibiotic as well as a spinal anesthetic and an abductor canal block. A well-padded tourniquet was applied and then the limb was prepped and draped in standard manner with ChloraPrep. The limb was exsanguinated and the tourniquet was inflated. I made a standard anterior incision. I sharply incised the skin then utilized Bovie electrocautery as well as the aqua mantis to achieve hemostasis. I made a medial parapatellar arthrotomy and mobilized the patella laterally. I then excised the anterior horns of the medial and lateral meniscus as well as the infrapatellar fat pad. I elevated a portion of the MCL off of the tibia. I then drilled for the alignment ramone for the varus valgus guide. I pinned this into place at +0 and made my distal femoral resection. I then sized the femur and he sized for a size 7. I then pinned into place the 5 in 1 femoral cutting guide. I made my anterior, posterior and chamfer cuts. I then excised the cruciates and the remaining portions of the menisci. I then pinned into place a extra medullary tibial cutting guide and made my tibial resection. I then pinned into place the tibial plate a utilizing alignment ramone to confirm rotation. I then cut for the post. Utilizing a [employer] high school coach and I then removed posterior osteophytes off the femur. I then placed a trial femur into position and cut for the trochlear component. I then sequentially trialed to size the polyethylene until there was good soft tissue balancing and range of motion. I then prepared the patella with a freehand cut utilizing sagittal saw. I sized and drilled for the patella. He had some slight tracking laterally to the patella. Lateral release was performed. I was able to preserve the lateral capsule. He then had good tracking to the patella with a no hands technique. All the trial components were removed. The deep tissues were anesthetized with an ortho mix solution. Then with Simplex HV with gentamicin cement, I cemented my definitive components. Definitive components, [facility] 2: Femur 7 Tibia 6 Poly 9 Patella 32 oval A betadine soak was performed. A deep drain was placed. The arthrotomy was closed with interrupted #1 Vicryl suture subcutaneous tissue was closed with interrupted 2-0 Vicryl suture. The skin was closed with with elver. A Silverlon was placed. Sterile dressings were applied. All needle and sponge counts were correct at the end of the procedure patient was transferred to the PACU in stable condition without apparent complication. The PA-C was necessary for assistance with procedure for assistance in positioning, prepping, draping, retraction and closure. I attest to the content of the Intraoperative Record and any orders documented therein. Any exceptions are noted below.
[2017-03-17] MEDS ORDERED: MAGNESIUM HYDROXIDE SUSP 30 ML UDC PO PRN (09:30)
[2017-03-17] MEDS ORDERED: OXYCODONE HCL IR 5 MG TAB (IMMEDIATE RELEASE) PO PRN (09:30)
[2017-03-17] MEDS ORDERED: ALUMINUM/MAGNESIUM/SIMETH (MAALOX MAX) 30 ML UDC PO PRN (09:30)
[2017-03-17] MEDS ORDERED: CEFAZOLIN IV 2,000 MG in DEXTROSE 5% 50ML 50 ML IV SCH (09:30)
[2017-03-17] MEDS ORDERED: PHENYLEPHRINE 100MCG/ML 5ML SYR IV PRN (09:30)
[2017-03-17] MEDS ORDERED: LORAZEPAM 0.5 MG TAB PO PRN (09:30)
[2017-03-17] MEDS ORDERED: ONDANSETRON INJ 2 MG/ML 2 ML VIAL IV PRN ×2 (09:30)
[2017-03-17] MEDS ORDERED: ATROPINE SULFATE 0.1 MG/ML 5ML SYR IV PRN (09:30)
[2017-03-17] MEDS ORDERED: SOD PHOSPHATE/SOD BIPHOSPHATE ENEMA 132 ML BTL PR PRN (09:30)
[2017-03-17] MEDS ORDERED: MoRPHine SULFATE 2 MG/ML CARP IV PRN (09:30)
[2017-03-17] MEDS ORDERED: ONDANSETRON 8 MG TAB PO PRN (09:30)
[2017-03-17] MEDS ORDERED: ZOLPIDEM TARTRATE 5 MG TAB PO PRN ×2 (09:30)
[2017-03-17] MEDS ORDERED: EpHEDrine SULFATE INJ 50 MG/ML AMP IV PRN (09:30)
[2017-03-17] MEDS ORDERED: BISACODYL 10 MG SUPP PR PRN (09:30)
[2017-03-17] MEDS ORDERED: FLUTICASONE PROP HFA INH 44 MCG INHALER INH PRN (09:30)
[2017-03-17] MEDS ORDERED: HYDROmorphone INJ 0.5 MG/0.5 ML SYR IV PRN (09:30)
--- NOTE | 2017-03-17 10:07 | DIAGNOSTIC IMAGING REPORT ---
TWO VIEWS RIGHT KNEE CLINICAL HISTORY: Postoperative examination. FINDINGS: AP and crosstable lateral portable views of the right knee are obtained. A right knee arthroplasty is in near anatomic alignment. There has been undersurface remodeling of the patella. No acute fracture is seen. There are expected postoperative changes around the knee including skin clips, a surgical drain, soft tissue edema, and subcutaneous gas. IMPRESSION: Expected postoperative changes status post right knee arthroplasty. No acute fracture is seen. Electronically signed by: Thomas Jansen M.D. 03/17/2017 10:06 AM Dictated Date/Time: 03/17/2017 10:06 AM
--- NOTE | 2017-03-17 10:43 | Anesthesiology Progress Note ---
Anesthesia Post Op Note Date & Time Mar 17, 2017 at 10:43 Vital Signs Pain Intensity: 0 Vital Signs Past 12 Hours Date Time Temp Pulse Resp B/P (MAP) Pulse Ox O2 Delivery O2 Flow Rate FiO2 03/17/17 10:38 67 18 03/17/17 10:38 68 18 96 03/17/17 10:36 121/86 03/17/17 10:33 66 23 03/17/17 10:33 66 23 96 03/17/17 10:32 64 29 03/17/17 10:32 65 29 95 03/17/17 10:31 126/78 03/17/17 10:27 66 16 03/17/17 10:27 67 16 97 03/17/17 10:26 131/84 03/17/17 10:25 66 21 97 03/17/17 10:25 66 21 03/17/17 10:21 137/84 03/17/17 10:20 66 29 93 03/17/17 10:20 66 29 03/17/17 10:16 121/84 03/17/17 10:15 64 20 03/17/17 10:15 63 20 95 03/17/17 10:11 136/82 03/17/17 10:10 65 14 96 03/17/17 10:10 65 14 03/17/17 10:09 65 27 03/17/17 10:09 67 27 95 03/17/17 10:06 123/81 03/17/17 10:04 64 26 93 03/17/17 10:04 65 26 03/17/17 10:01 138/86 03/17/17 09:59 63 15 95 03/17/17 09:59 63 15 03/17/17 09:56 156/85 03/17/17 09:54 65 21 96 03/17/17 09:54 64 21 03/17/17 09:51 157/91 03/17/17 09:49 62 22 93 03/17/17 09:49 62 22 03/17/17 09:48 36.6 63 15 131/85 (102) 95 Nasal Cannula 2 03/17/17 09:46 131/85 03/17/17 09:44 64 26 96 03/17/17 09:44 64 26 03/17/17 09:41 158/84 03/17/17 09:39 61 16 03/17/17 09:39 60 16 97 03/17/17 09:36 134/85 03/17/17 09:34 63 21 98 03/17/17 09:34 63 21 03/17/17 09:33 60 15 97 03/17/17 09:33 62 15 03/17/17 09:31 155/94 03/17/17 09:28 65 15 03/17/17 09:28 65 15 98 03/17/17 09:26 160/87 03/17/17 09:23 62 14 03/17/17 09:23 63 14 99 03/17/17 09:21 165/105 03/17/17 09:19 162/79 03/17/17 09:18 36.3 62 20 162/79 (98) 99 Oxymask 10 03/17/17 05:48 37.0 60 16 157/90 95 Room Air Notes Mental Status: alert / awake / arousable, participated in evaluation Pt Amnestic to Procedure: Yes Nausea / Vomiting: adequately controlled Pain: adequately controlled Airway Patency, RR, SpO2: stable & adequate BP & HR: stable & adequate Hydration State: stable & adequate Anesthetic Complications: no major complications apparent
[2017-03-17] MEDS ORDERED: COLESEVELAM 625 MG TAB PO SCH (12:30)
[2017-03-17] MEDS: FERROUS GLUCONATE 324 MG TAB PO SCH ×2 (13:15→17:45)
[2017-03-17] MEDS: CEFAZOLIN IV 2,000 MG in SYRINGE 0 ML IV SCH ×2 (15:15→21:22)
[2017-03-17] MEDS: COLESEVELAM PO SCH (15:23)
[2017-03-17] MEDS ORDERED: COLESEVELAM PO SCH (16:00)
[2017-03-17] MEDS: SODIUM CHLORIDE 0.9% 1000ML 1,000 ML IV SCH (17:24)
[2017-03-17] MEDS ORDERED: NURSING VERBAL MED ORDER ONE (17:30)
[2017-03-17] MEDS: ASPIRIN 81 MG ECTAB PO SCH (21:13)
[2017-03-17] MEDS: CeleBREX 200 MG CAP PO SCH (21:13)
[2017-03-17] MEDS: DOCUSATE SODIUM 100 MG CAP PO SCH (21:13)
[2017-03-17] MEDS: SENNA 8.6 MG TAB PO SCH (21:13)
[2017-03-17] MEDS: PANTOprazole SOD 40 MG TAB PO SCH (21:13)
[2017-03-18] MEDS: SODIUM CHLORIDE 0.9% 1000ML 1,000 ML IV SCH ×2 (03:27→05:19)
[2017-03-18 03:49] VITALS: BP 156/78; PULSE 64; TEMP 36.8; O2SAT 94
[2017-03-18 07:00] VITALS: BP 165/85; PULSE 67; TEMP 36.9; O2SAT 94
[2017-03-18] MEDS: COLESEVELAM PO SCH ×3 (07:24→15:15)
[2017-03-18] MEDS: MULTIVITAMIN TAB PO SCH (07:25)
[2017-03-18] MEDS: ASPIRIN 81 MG ECTAB PO SCH ×2 (07:25→20:32)
[2017-03-18] MEDS: FERROUS GLUCONATE 324 MG TAB PO SCH ×3 (07:25→15:43)
[2017-03-18] MEDS: DOCUSATE SODIUM 100 MG CAP PO SCH ×2 (07:25→20:32)
[2017-03-18] MEDS: PANTOprazole SOD 40 MG TAB PO SCH ×2 (07:26→20:34)
[2017-03-18] MEDS: CeleBREX 200 MG CAP PO SCH ×2 (07:26→20:34)
[2017-03-18] MEDS: AMLODIPINE BESYLATE 5 MG TAB PO SCH (07:27)
[2017-03-18 08:00] VITALS: O2SAT 94
[2017-03-18 08:05] LABS: HEMATOCRIT 38.7 % (42-52); HEMOGLOBIN 13.5 g/dL (14.0-18.0); MEAN CORPUSCULAR HGB CONC 34.9 g/dl (32-36); MEAN PLATELET VOLUME 9.7 fL (7.4-10.4); PLATELET COUNT 154 K/uL (130-400); RED CELL DISTRIBUTION WIDTH CV 13.2 % (11.5-14.5); RED CELL DISTRIBUTION WIDTH SD 42.9 fL (36.4-46.3); WHITE BLOOD COUNT 11.55 K/uL (4.8-10.8)
[2017-03-18 08:34] LABS: CALCIUM 8.4 mg/dl (8.5-10.1); CREATININE 0.88 mg/dl (0.60-1.40); POTASSIUM 3.5 mmol/L (3.5-5.1)
[2017-03-18] MEDS ORDERED: MULTIVITAMIN TAB PO SCH (09:00)
[2017-03-18 12:27] VITALS: BP 148/83; PULSE 64; TEMP 36.9; O2SAT 94
--- NOTE | 2017-03-18 12:35 | Orthopedic Progress Note ---
Orthopedic Progress Note Date of Service Mar 18, 2017. Subjective Post OP Day: 1 Reports: feeling well, pain controlled w PO medications, Denies: chest pain, SOB , nausea / vomiting, light headedness, calf pain Objective calves soft nontender, N/V intact, capillary refill less than 2 sec., dressing C /D/I, A&O x3, toes mobile, hemovac drainage Date Time Temp Pulse Resp B/P (MAP) Pulse Ox O2 Delivery O2 Flow Rate FiO2 03/18/17 12:27 36.9 64 17 148/83 (104) 94 Room Air 03/18/17 08:00 94 Room Air 03/18/17 07:00 36.9 67 17 165/85 (111) 94 Room Air 03/18/17 03:49 36.8 64 16 156/78 (104) 94 Room Air 03/17/17 23:20 Room Air 03/17/17 22:45 36.7 72 16 126/75 (92) 92 Room Air 03/17/17 15:39 36.7 62 18 128/85 (99) 96 Room Air 03/17/17 13:45 62 16 136/89 (105) 96 Room Air 03/17/17 12:43 64 17 146/92 (110) 96 Nasal Cannula 2.0 Laboratory Results 24 Hours: Test 03/18/17 07:42 Hematocrit 38.7 % Hemoglobin 13.5 g/dL Prothromb Time International Ratio 1.0 Prothrombin Time 10.7 SECONDS Assessment & Plan Assessment: POD #1 right TKA Plan: Pt doing well. plan for discharge to home with HH tomorrow if continuing to do well Inhouse Planning Pain Management: PO Tylenol, Oxy IR DVT Prophylaxis: TEDs, SCDs, ASA Discharge Planning Discharge Planning: home with home health Pain Management: PO Tylenol, Oxy IR DVT Prophylaxis: TEDs, ASA Therapy: Physical Therapy
[2017-03-18] MEDS: ACETAMINOPHEN 500 MG TAB PO SCH ×2 (13:29→22:17)
[2017-03-18 15:01] VITALS: BP 168/82; PULSE 62; TEMP 36.9; O2SAT 95
--- NOTE | 2017-03-18 18:35 | Discharge Instructions ---
Discharge Instructions Date of Service Mar 18, 2017. Admission Reason for Admission: Right Knee Osteoarthritis Discharge Discharge Diagnosis / Problem: right TKA Discharge Goals Goal(s): Decrease discomfort, Improve function, Increase independence, Therapeutic intervention Activity Recommendations Activity Limitations: per Instructions/Follow-up section . Instructions / Follow-Up Instructions / Follow-Up ACTIVITY RECOMMENDATIONS: SELF CARE INSTRUCTIONS AFTER TOTAL KNEE REPLACEMENT A. You may need to continue a physical therapy program after discharge from the hospital. There are several options available to you. Your doctor will assist you in selecting the best one for you. 1. An out-patient facility 2 to 3 times a week for therapy or home therapy. 2. Continue working on all exercises taught to you in the hospital. Your goals should be to increase bending of your knee to 90 degrees and beyond and to fully straighten your knee. B. You may progress at your own pace from walking with a walker or crutches to a cane; then to no assistive devices. C. Make walking a part of your daily routine. Be up as much as comfortable with rest periods throughout the day. Rest with leg elevation is very important. Use the ice wrap frequently for the first 3-4 weeks. D. There are no restrictions on activities. You may ride in a car, shop, participate in ribbon winder and all social activities. E. Wear the long elastic stockings (MIKIE hose) 20 hours a day for 2 weeks after surgery. They can be removed several times a day for laundering and for a bath. F. You may shower, no tub baths until cleared by your doctor. SPECIAL CARE INSTRUCTIONS: VERY IMPORTANT TO READ AND REVIEW A. There are a few signs you need to watch for after you are home. Call [facility] if you notice any of the followin. Increased severe knee pain. Some pain is expected especially when you exercise. 2. Increased swelling in your leg or knee; pain or swelling of the calf muscle in either lower leg. 3. Any fluid drainage from the incision. 4. Shortness of breath or chest pain. B. Please call [facility] at if you have any concerns or questions about your operation or recovery. The doctor or his nurse will return your call promptly. C. You must take antibiotics before dental work, bladder, bowel or other surgery. Your doctor will provide you with a permanent care to carry describing this precaution. IMPORTANT: * REMEMBER TO TAKE ASPIRIN, 81 MG, TWICE DAILY FOR 4 WEEKS UNLESS OTHERWISE DIRECTED. THIS IS YOUR BLOOD THINNER. * HIGH RISK PATIENTS MAY BE PRESCRIBED A STRONGER BLOOD THINNER. THIS WILL BE PROVIDED AT DISCHARGE. * CALL IF INCREASED PAIN, REDNESS, DRAINAGE OR FEVER GREATER THAT 101. * WEAR MIKIE HOSE 20 HOURS PER DAY FOR 2 WEEKS. * YOU MAY HAVE A LARGE BAND-AID LIKE DRESSING (SILVERON). THIS WILL REMAIN ON YOUR INCISION FOR 7 DAYS, THEN CAN BE REMOVED. IF INCISION IS LEAKING THROUGH DRESSING, CALL THE OFFICE . FOLLOW UP VISIT: If appointment is not already scheduled: Please call [facility] to make a follow-up appointment for 2 weeks after your surgery at . Current Hospital Diet Patient's current hospital diet: Regular Diet Discharge Diet Recommended Diet: Regular Diet Procedures Procedures Performed: Right Total Knee Arthroplasty Pending Studies Studies pending at discharge: no Laboratory Results Hemoglobin A1c Test 03/06/17 13:56 Range/Units Estimated Average Glucose 131 mg/dl Hemoglobin A1c 6.2 H 4.5-5.6 % Medical Emergencies . Who to Call and When: Medical Emergencies: If at any time you feel your situation is an emergency, please call 911 immediately. . Non-Emergent Contact Non-Emergency issues call your: Primary Care Provider . "Provider Documentation" section prepared by Lizz Mcintosh. . VTE Core Measure Inpt VTE Proph given/why not?: Other Anticoagulation, T.E.D. Stockings, SCD's [place] Drug Monitoring Program Search Results: patient reviewed within database, no issues identified
[2017-03-18] MEDS: SENNA 8.6 MG TAB PO SCH (20:33)
[2017-03-18 22:44] VITALS: BP 149/70; PULSE 62; TEMP 36.8; O2SAT 95
[2017-03-19] MEDS: ACETAMINOPHEN 500 MG TAB PO SCH (05:19)
[2017-03-19 07:00] VITALS: BP 158/87; PULSE 61; TEMP 37.1; O2SAT 93
[2017-03-19] MEDS: DOCUSATE SODIUM 100 MG CAP PO SCH (07:07)
[2017-03-19] MEDS: COLESEVELAM PO SCH ×2 (07:46)
[2017-03-19] MEDS: MULTIVITAMIN TAB PO SCH (09:04)
[2017-03-19] MEDS: FERROUS GLUCONATE 324 MG TAB PO SCH (09:04)
[2017-03-19] MEDS: ASPIRIN 81 MG ECTAB PO SCH (09:05)
[2017-03-19] MEDS: CeleBREX 200 MG CAP PO SCH (09:05)
[2017-03-19] MEDS: PANTOprazole SOD 40 MG TAB PO SCH (09:05)
[2017-03-19] MEDS: AMLODIPINE BESYLATE 5 MG TAB PO SCH (09:06)
--- NOTE | 2017-03-19 09:07 | Orthopedic Progress Note ---
Orthopedic Progress Note Date of Service Mar 19, 2017. Subjective Post OP Day: 2 Reports: feeling well, pain controlled w PO medications, Denies: chest pain, SOB , nausea / vomiting, light headedness, calf pain Objective calves soft nontender, N/V intact, capillary refill less than 2 sec., dressing C /D/I, A&O x3, toes mobile Date Time Temp Pulse Resp B/P (MAP) Pulse Ox O2 Delivery O2 Flow Rate FiO2 03/19/17 07:00 37.1 61 17 158/87 (110) 93 Room Air 03/19/17 00:20 Room Air 03/18/17 22:44 36.8 62 16 149/70 (96) 95 Room Air 03/18/17 19:40 Room Air 03/18/17 15:01 36.9 62 16 168/82 (110) 95 Room Air 03/18/17 12:27 36.9 64 17 148/83 (104) 94 Room Air Assessment & Plan Assessment: POD #2 right TKA Plan: plan for discharge home today with HH Inhouse Planning Pain Management: Celebrex, PO Tylenol, Oxy IR DVT Prophylaxis: TEDs, SCDs, ASA Discharge Planning Discharge Planning: home with home health Pain Management: Celebrex, PO Tylenol, Oxy IR DVT Prophylaxis: TEDs, ASA Therapy: Physical Therapy
[2017-03-19] MEDS ORDERED: RXC5 PO (09:10)
[2017-03-19] MEDS ORDERED: FRRG PO (09:10)
[2017-03-19] MEDS ORDERED: CLB200 PO (09:10)
[2017-03-19] MEDS ORDERED: ACET-24 PO (09:10)
[2017-03-19] MEDS ORDERED: ONDA8TAB6 PO (09:10)
[2017-03-19] MEDS ORDERED: ASPEC81 PO (09:10)
[2017-03-19 09:54] VITALS: BP 158/87; PULSE 61; TEMP 37.1; O2SAT 93
--- NOTE | 2017-03-21 13:17 | Discharge Summary ---
Orthopedic Discharge Summary Admission Date/Reason Mar 17, 2017 at 06:50 Right Knee Osteoarthritis. Discharge Date/Disposition Mar 19, 2017 Home with services Diagnosis Principal Diagnosis: S/P right total knee arthroplasty Medication Reconciliation as per discharge instructions Admission Physical Exam As per Admitting History & Physical. Hospital Course POD#1 patient was feeling well. Pain was well controlled with PO medications. He would like to go home with home health and this was to be arranged for Monday. His dressing was clean dry and intact. POD#2 patient was feeling well. Dressing was clean, dry and intact. He was to be discharged later after morning PT home with home health. Discharge Instructions Please refer to the electronic Patient Visit Report (Discharge Instructions) for additional information.
== END 2017-03-19 13:23 | disposition home health service (06) | DRG 470 ==
LOC: C.ACU 05:07 → C.MSW 06:50 → ENRESERV 10:31
PROVIDERS: ADMIT Orthopaedic Surgery; ATTEND Orthopaedic Surgery
PROC: 0SRC069 Replacement of Right Knee Joint with Oxidized Zirconium on Polyethylene Synthetic Substitute, Cemented, Open Approach (ICD-10-PCS; principal; 2017-03-17 07:00)
DX: M17.11 Unilateral primary osteoarthritis, right knee (principal); Z79.82 Long term (current) use of aspirin

== ENCOUNTER 2017-09-22 16:33 | Inpatient (IN) | payer OTHER ==
[~2017-09-22] VITALS: Ht 185.4 cm; Wt 120.0 kg
[~2017-09-22 16:33] MED LIST changes: -ACET-1256 PO; +ACET-24 PO; -AMLO-110 PO; +AMLO5TAB3 PO; +ASPI-320 PO; -ASPI81TA28 PO; +CLB200 PO; +FRRG PO; -IBUP-1050 PO; -NTRGSL/4 UT; +ONDA-170 PO; -ONDA8TAB6 PO; +RXC5 PO
[2017-09-22 18:50] VITALS: BP 172/78; PULSE 80; TEMP 37.5; O2SAT 97; Ht 185.4 cm; Wt 120.0 kg
[2017-09-22] MEDS ORDERED: POTA10TA PO (19:14)
[2017-09-22] MEDS ORDERED: ASPCH81X PO (19:14)
[2017-09-22] MEDS ORDERED: NITROGLYCERIN 0.4 MG SL PER TAB CHARGE SL PRN (19:45)
[2017-09-22] MEDS ORDERED: ACETAMINOPHEN 325 MG TAB PO PRN (19:45)
[2017-09-22] MEDS ORDERED: NURSING VERBAL MED ORDER ONE (20:00)
[2017-09-22] MEDS ORDERED: MoRPHine SULFATE 4 MG/ML 1 ML CARP\\VIAL IV PRN (20:30)
[2017-09-22] MEDS ORDERED: ONDANSETRON INJ 2 MG/ML 2 ML VIAL IV PRN (20:30)
--- NOTE | 2017-09-22 21:00 | DIAGNOSTIC IMAGING REPORT ---
CHEST ONE VIEW PORTABLE CLINICAL HISTORY: ffup study, poss congestion from outpx cxr COMPARISON STUDY: No previous studies for comparison. FINDINGS: Moderate cardiac megaly. Prior median sternotomy. Lungs are clear. Mild interstitial prominence left lung base with suboptimal visibility left hemidiaphragm. IMPRESSION: Mild parenchymal infiltrate left base. Moderate cardiac megaly. The above report was generated using voice recognition software. It may contain grammatical, syntax or spelling errors. Electronically signed by: Addy Otoole M.D. 09/22/2017 8:58 PM Dictated Date/Time: 09/22/2017 8:57 PM
[2017-09-22] MEDS ORDERED: OXYCODONE/ACETAMINOPHEN 5-325 TAB PO PRN (21:30)
[2017-09-22] MEDS ORDERED: LORAZEPAM 0.5 MG TAB PO PRN (21:30)
[2017-09-22 21:43] LABS: CALCIUM 7.9 mg/dl (8.5-10.1); CREATININE 1.06 mg/dl (0.60-1.40); POTASSIUM 3.5 mmol/L (3.5-5.1)
[2017-09-22 22:11] LABS: HEMATOCRIT 43.7 % (42-52); MEAN CELL VOLUME 88.6 fL (80-100); MEAN CORPUSCULAR HEMOGLOBIN 30.4 pg (25-34); MEAN CORPUSCULAR HGB CONC 34.3 g/dl (32-36); MEAN PLATELET VOLUME 10.5 fL (7.4-10.4); RED CELL DISTRIBUTION WIDTH CV 14.4 % (11.5-14.5); RED CELL DISTRIBUTION WIDTH SD 46.7 fL (36.4-46.3); WHITE BLOOD COUNT 10.81 K/uL (4.8-10.8)
[2017-09-22 22:12] LABS: BASO % 0.1 %; BASO ABS # 0.01 K/uL (0-0.2); IG# 0.04 K/uL (0.00-0.02); LYMPH % 3.9 %; LYMPH ABS # 0.42 K/uL (1.2-3.4); MONO % 12.9 %; MONO ABS # 1.39 K/uL (0.11-0.59); NEUT % 82.7 %; NEUT ABS # 8.95 K/uL (1.4-6.5)
[2017-09-22 23:03] LABS: ALBUMIN 2.6 gm/dl (3.4-5.0); TOTAL PROTEIN 6.4 gm/dl (6.4-8.2)
[2017-09-22 23:43] VITALS: BP 139/79; PULSE 81; TEMP 37.9; O2SAT 95
[2017-09-23] VITALS (8 sets, daily range): BP systolic 108–160; BP diastolic 66–88; PULSE 65–76; TEMP 36.5–37.4; O2SAT 86–97
[2017-09-23] MEDS ORDERED: NSS + 20MEQ KCL 1000ML 1,000 ML IV SCH
[2017-09-23] MEDS ORDERED: ACETAMINOPHEN 325 MG TAB PO ONE (00:49)
--- NOTE | 2017-09-23 00:53 | INTERNAL MEDICINE CONSULTATION ---
DATE OF CONSULTATION: 09/22/2017 PRIMARY CARE PHYSICIAN: Dr. Gilbert. Patient seen on request of Dr. Carmona for preop eval and medical management. HISTORY OF PRESENT ILLNESS: Medical history significant for CAD status post CABG/stenting, hypertension, hyperlipidemia, statin intolerance, prediabetes, GERD sp surgery. Recent confinement for elective right TKA for for arthritis last February 2017. Uneventful postop course. This week, patient playing a lot of golf. About 3 days ago, patient woke up with chills, aches, and malaise. No chest pain, no shortness of breath. Dry cough symptoms he has had for months now for which his PCP has prescribed as need inhalers. some urinary frequency noted. Malaise worsening. No recollection of recent tick bites, but patient has some concerns given golfing. This morning patient woke up with painful right knee swelling, low-grade fever as per patient. Patient seen at [facility]. LE venous Dopplers of the RLE negative for DVT. Right knee x-ray showed joint effusion with subcutaneous edema. Patient sent to [facility] after coordination with U service. MEDICAL HISTORY: As above. Last [facility] visit was 02/2017 For preop evaluation for recent joint surgery. OPERATIONS: He has had CABG, right knee surgery, Brooks fundoplication, cholecystectomy. HOME MEDICATIONS: Include Norvasc, omeprazole, tamsulosin, atenolol, Welchol, Ambien, Lyrica, Flovent, nitroglycerin, aspirin. ALLERGIES: ALLERGIC TO STATIN, LISINOPRIL, MEVACOR, VASOTEC, ZETIA, ZOCOR. FAMILY HISTORY: Heart disease. PERSONAL AND SOCIAL HISTORY: Nonsmoker. No chronic intake of alcoholic beverages. 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 FUNCTIONALITY : Still able to do housework without issues, active golfer. REVIEW OF SYSTEMS: As per HPI, all 10 systems reviewed. All other ROS negative. PHYSICAL EXAMINATION: VITAL SIGNS: Blood pressure in the 170/80, pulse rate 72, RR 18, temperature 37 O2 sats 97 on room air. GENERAL: Noted to be slightly anxious, obese, in no respiratory distress. SKIN: Normal color, warm. Petechiae noted in the lower extremities. HEENT: Partial alopecia. [place] palpebral conjunctivae. No ptosis. Dry mucosa. NECK: Supple, nontender. CHEST: Clear to auscultation. No tenderness. HEART: Regular rate and rhythm, no murmur. ABDOMEN: Soft, nontender. EXTREMITIES: Ice pack noted in the right lower extremity, tender swelling on the right knee with some limitation in motion. NEUROLOGIC: Coherent. No gross focality. LABORATORY DATA: Hemoglobin noted to be 15, white cell count 10.81, platelets noted to be low Sodium 136, potassium 3.5, creatinine 1, glucose 152. Chest x-ray, mild parenchymal infiltrate, left base. UA is still pending. ASSESSMENT: 1. Right knee swelling history of recent R TKR 02/2017 Possible prosthetic joint infection No overt sepsis for now. 2. Constitutional symptoms secondary to above rule out atypical pneumonia, urinary tract infection (contaminated UA from [facility], hx urinary frequency/urgency), Lyme disease (patient concerns given golfing history) - as alternative sources of infection 3. CAD status post CABG stenting Stable cardiac status following recent outpatient preop eval by his [facility] network support technician February 2017 prior to recent surgery. 4. hypertension slightly elevated 5. prediabetes as per records 6. Thrombocytopenia 2 to illness. RECOMMENDATIONS: No medical contraindication to contemplated procedure. Follow results of blood cultures done at [facility]. Repeat UA. Lyme screen Low threshold for initiating antibiotic Rx with IV Vancomycin for prostatic joint infection if patient develops fever overnight Synovial fluid sampling/Management of right knee issues as per Orthopedics. Resume home ASA for secondary CAD prevention once platelets stable and bleeding risk minimal and negligible pending Orthopedics eval. Check hemoglobin A1c DVT prophylaxis, SCDs, RE thrombocytopenia. Thank you very much for this consultation. Dr. Fernandez will follow the patient's progress. TEX
[2017-09-23] MEDS ORDERED: VANCOMYCIN CONSULT ACTIVE PRN (01:00)
[2017-09-23] MEDS ORDERED: VANCOMYCIN IV 2,750 MG in SODIUM CHLORIDE 0.9% 500ML 500 ML IV ONE (01:15)
[2017-09-23 06:23] LABS: HEMOGLOBIN A1C 6.3 % (4.5-5.6)
[2017-09-23] MEDS ORDERED: BACITRACIN 50000 UNIT VIAL ONE (06:47)
[2017-09-23] MEDS ORDERED: PROPOFOL IV EMULSION 10 MG/ML 20 ML VIAL ONE (07:07)
[2017-09-23] MEDS ORDERED: LIDOCAINE HCL 2% 2 ML VIAL (20MG/ML) ONE (07:07)
[2017-09-23] MEDS ORDERED: ONDANSETRON INJ 2 MG/ML 2 ML VIAL ONE (07:07)
[2017-09-23] MEDS ORDERED: FENTANYL CITRATE INJ 50 MCG/1 ML 2 ML VIAL ONE ×2 (07:07)
[2017-09-23] MEDS ORDERED: DEXAMETHASONE SOD INJ 4 MG/ML VIAL ONE (07:07)
[2017-09-23] MEDS ORDERED: MIDAZOLAM HCL 1 MG/ML 2ML VIAL ONE (07:08)
[2017-09-23] MEDS ORDERED: EpHEDrine SULFATE INJ 50 MG/ML AMP IV PRN (07:30)
[2017-09-23] MEDS ORDERED: ONDANSETRON INJ 2 MG/ML 2 ML VIAL IV PRN ×2 (07:30→09:30)
[2017-09-23] MEDS ORDERED: ATROPINE SULFATE 0.1 MG/ML 5ML SYR IV PRN (07:30)
[2017-09-23] MEDS ORDERED: FENTANYL CITRATE INJ 50 MCG/1 ML 2 ML VIAL IV PRN (07:30)
--- NOTE | 2017-09-23 07:30 | History and Physical ---
History & Physical Documentation Date Sep 23, 2017. Chief Complaint Right knee pain HPI (Knee Pain) Additional Notes: 72-year-old white male known to our practice who is status post right and left total knee arthroplasties in the past. Patient states that approximately 4 days ago he began feeling poorly and was just not eating. He has been recently diagnosed with pneumonia of which he states they were unsure if it was or was not but began treating him for it. He began having increased pain in the right knee and yesterday the knee continued to swell and become more red with streaks going down the leg towards the foot. He had difficulty bending the knee because of severe pain and was unable to put weight on the knee because of the same type of pain. He was seen at [facility] emergency room where it was felt that he had a infection in his right TKA. [facility] was contacted and had the patient transferred to [facility] for further care. Currently the patient is lying in bed awake alert and states he is continuing to have pain in his right knee although a lot of the redness has left his right lower extremity. He had been started on vancomycin. Past Medical/Surgical History Medical Problems: (1) DJD (degenerative joint disease) of knee (2) Right knee DJD Additional History Hypertension, hypercholesteremia, BPH, CAD. Past surgical history: CABG in 1995, stent placement in 2014. Fundoplication 2 , cholecystectomy, herniorrhaphy, left and right total knee replacements as noted above. Right TKA was done in February of this year. Family History + Heart disease Social History Smoking Status: Never Smoker Smokeless Tobacco Use: No Alcohol Use: none Marital Status: Allergies Coded Allergies: Enalapril (Verified Adverse Reaction, Unknown, SEVERE HEADACHE, 03/17/17) Lisinopril (Verified Adverse Reaction, Unknown, COUGH, 03/17/17) Statins (Verified Adverse Reaction, Unknown, SEVERE MUSCLE ACHES, 03/17/17) Home Medications Scheduled Acetaminophen (Sb Non-Aspirin Extra Stre), 1,000 MG PO Q8 Amlodipine (Norvasc), 5 MG PO QAM Aspirin (Aspirin Chewable), 81 MG PO DAILY Atenolol (Tenormin), 25 MG PO QAM Colesevelam Hcl (Welchol), 2 TAB PO TID Ferrous Gluconate (Ferrous Gluconate), 324 MG PO TIDM Multivitamin (Multivitamin), 1 TAB PO QAM Omeprazole (Prilosec), 20 MG PO BID Scheduled PRN Lorazepam (Ativan), 0.5 MG PO TID PRN for Anxiety Ondansetron Hcl (Zofran), 8 MG PO Q8 PRN for Nausea Potassium Chloride (K-Tabs), 1 TAB PO DAILY PRN for CRAMPS Zolpidem Tartrate (Ambien), 5 MG PO HS PRN for Sleep Review of Systems Patient states that he was having fevers over the last several days up to 104. Some chills were noted. Generally has been feeling poorly with general malaise. He denies any nausea or vomiting. No increased shortness of breath at rest or exertion, no increased cough or sputum production, recent diagnosis of questionable pneumonia. No recent chest pain, chest pressure, irregular heartbeat. Denies abdominal pain, nausea, vomiting, diarrhea, melena, hematemesis, hematochezia. History of BPH and renal calculi in the past. Denies any recent hematuria pyuria or dysuria. His history of CVA, TIA, seizure disorder, migraine headaches. Physical Exam Addiitonal Comments: PHYSICAL EXAM General: Patient is a mildly obese white male who is alert and oriented 3 and in no acute distress pleasant and cooperative Skin: Warm and dry HEENT: Head is normocephalic atraumatic, there is no scleral icterus or injection seen at this time. EOMI. Nasal airways patent and oral mucosa is pink and moist Neck: Supple without adenopathy Heart: Regular rate and rhythm without murmurs Lungs: Clear to auscultation Abdomen: Obese, nontender, bowel sounds are present and active 4, nontender to palpation Genitalia and rectal: Not performed Extremities: On examination of the patient's right lower extremity he has not noted large effusion of the right knee. The knee is overtly warm to the touch compared to the left. He has a well-healed scar from previous surgery. There are no areas of open wounds that are draining at this time. The knee is tender on palpation. He is unable to fully extend the knee at this time due to pain and has very limited range of motion because of pain. Left lower extremity is essentially benign at this time and has a scar from previous TKA on the left knee. Upper extremities are equal bilaterally with range of motion and are essentially nontender at the shoulders elbows and wrists. Sensation is intact and he has no gross motor or sensory loss seen at this time other than due to inability to move the knee due to pain. Right lower extremity had some increased edema towards the ankle and distal pulses were difficult to appreciate. Laboratory Last 24 Hours Test 09/22/17 21:05 09/22/17 22:45 09/23/17 04:44 White Blood Count 10.81 K/uL Red Blood Count 4.93 M/uL Hemoglobin 15.0 g/dL Hematocrit 43.7 % Mean Corpuscular Volume 88.6 fL Mean Corpuscular Hemoglobin 30.4 pg Mean Corpuscular Hemoglobin Concent 34.3 g/dl Platelet Count K/uL Mean Platelet Volume 10.5 fL Neutrophils (%) (Auto) 82.7 % Lymphocytes (%) (Auto) 3.9 % Monocytes (%) (Auto) 12.9 % Eosinophils (%) (Auto) 0.0 % Basophils (%) (Auto) 0.1 % Neutrophils # (Auto) 8.95 K/uL Lymphocytes # (Auto) 0.42 K/uL Monocytes # (Auto) 1.39 K/uL Eosinophils # (Auto) 0.00 K/uL Basophils # (Auto) 0.01 K/uL RDW Standard Deviation 46.7 fL RDW Coefficient of Variation 14.4 % Immature Granulocyte % (Auto) 0.4 % Immature Granulocyte # (Auto) 0.04 K/uL Platelet Estimate DECREASED Sodium Level 134 mmol/L Potassium Level 3.5 mmol/L Chloride Level 101 mmol/L Carbon Dioxide Level 26 mmol/L Anion Gap 8.0 mmol/L Blood Urea Nitrogen 19 mg/dl Creatinine 1.06 mg/dl Est Creatinine Clear Calc Drug Dose 83.5 ml/min Estimated GFR () 80.3 Estimated GFR (Non- 69.3 BUN/Creatinine Ratio 17.6 Random Glucose 152 mg/dl Estimated Average Glucose 134 mg/dl Hemoglobin A1c 6.3 % Calcium Level 7.9 mg/dl Magnesium Level 1.9 mg/dl Total Bilirubin 1.8 mg/dl Direct Bilirubin 0.7 mg/dl Aspartate Amino Transf (AST/SGOT) 23 U/L Alanine Aminotransferase (ALT/SGPT) 24 U/L Alkaline Phosphatase 83 U/L Total Protein 6.4 gm/dl Albumin 2.6 gm/dl Procalcitonin 34.47 ng/ml Lyme Disease IgG Antibody NEG Lyme Disease IgM Antibody NEG Urine Color DK YELLOW Urine Appearance CLEAR Urine pH 6.5 Urine Specific [place] 1.020 Urine Protein 1+ Urine Glucose (UA) NEG Urine Ketones NEG Urine Occult Blood 1+ Urine Nitrite NEG Urine Bilirubin NEG Urine Urobilinogen POS Urine Leukocyte Esterase NEG Urine WBC (Auto) 1-5 /hpf Urine RBC (Auto) 0-4 /hpf Urine Hyaline Casts (Auto) 0 /lpf Urine Epithelial Cells (Auto) 10-20 /lpf Urine Bacteria (Auto) NEG Diagnosis & Plan Diagnosis & Plan (1) SEPTIC RIGHT TKA Plan: I&D poly exchange
[2017-09-23] MEDS ORDERED: CEFAZOLIN SOD 1 GM VIAL ONE (08:07)
[2017-09-23] MEDS ORDERED: HYDROmorphone INJ 2 MG/ML SYR/VIAL ONE (08:15)
[2017-09-23] MEDS ORDERED: CEFAZOLIN SOD 1 GM VIAL IV ONE (08:22)
--- NOTE | 2017-09-23 08:42 | Pharmacy Progress Note ---
Pharmacy Abx Dose Short Note Date of Service Sep 23, 2017. Assessment & Plan Assessment * 72 year old male admitted for c/o chills, malaise, muscle aches x 3 days and new onset redness R leg. Patient felt to have septic R TKA * He is planned for I+D with poly exchange in OR today * He has a h/o of both R and L TKA's, with the most recent being his R done in 02/2017 * Baseline SCr ~0.9 Plan Vancomycin * Loading dose: 2750mg IV x 1 given this am at 0111 * Maintenance dose: 1750mg (14.6mg/kg) IV Q 12 hours * Goal trough level for bone/joint infxn : 15 to 20 mcg/mL * Trough level ordered for: 09/25/17 w/ maint dose * P'kinetic estimates: Vd 0.7L/kg, half-life ~9-10 hnours Pharmacy will continue to follow and will adjust dose/frequency as necessary. Thank you.
--- NOTE | 2017-09-23 09:29 | [facility] Operative Report ---
Operative Report Operative Date Sep 23, 2017. Pre-Operative Diagnosis Infected Right Total Knee Post-Operative Diagnosis Infected Right Total Knee Procedure(s) Performed Right Knee Incision and Drainage with Poly Exchange Surgeon Jumpbasting Canvas Baster Surgeon(s) JONNY Wilder Estimated Blood Loss 20ML Findings Grossly infected total knee Specimens Culture set 1. Right Knee sent for Routine C+S, Gram Stain, Anerobic, Aerobic Culture set 2. Right knee Posterior tissue, Sent for Routine C+S, Gram Stain, Anerobic, Aerobic A. Removed poly right knee Drains 2 Hemovac Anesthesia Type General Complication(s) none Disposition Recovery Room / PACU Indications The patient is a 72-year-old male who underwent a uncomplicated right total knee arthroplasty in February. He had done quite well postoperatively. Starting on Monday he started having generalized malaise. He started having increasing pain and swelling in the knee. He was diagnosed with having pneumonia. The right knee then became red hot swollen on Monday and he presented to the emergency room. He had an elevated white blood cell count as well as a sed rate elevated to 50 with a red swollen knee. Medicine service started him on vancomycin. He presents for irrigation and debridement and polyethylene exchange of the right total knee. Description of Procedure Risks benefits and alternatives of surgery including but not limited to infection DVT pain stiffness need for surgery damage to blood vessels damage to nerves or risks of anesthesia were discussed with the patient and she wished to proceed. Patient was identified in the laterality was confirmed and marked. A well-padded tourniquet was applied and then the limb was prepped and draped in standard manner with ChloraPrep. The limb was exsanguinated and the tourniquet was inflated. The previous incision was intact. The arthrotomy was intact. I then reopen his arthrotomy and a large amount of purulent material was expressed. Cultures of this fluid were obtained. The tissues of the deep joint appeared to be grossly infected. I then thoroughly irrigated the wound with Pulsavac with bacitracin and the fluid for total 9 L. I performed a sharp excisional debridement down to the layer of periosteum of the bone. I ensured I excised any biofilm within the knee. The knee was then debrided with the versa jet. The old polyethylene was removed. And the posterior capsule was debrided. We then changed our gloves placed fresh instruments and placed new drapes down. A new polyethylene was placed. This is a same 06/25/ Poly. Betadine soak was performed. 2 Hemovac drains were placed. The arthrotomy was then closed with interrupted #1 Vicryl suture. The subcutaneous tissue was closed with interrupted 2-0 Vicryl suture. The skin was closed with elver. A Prevena wound VAC was placed. Sterile dressings applied and the tourniquet was released. All needle and sponge counts were correct at the end of the procedure patient was transferred to the PACU in stable condition without apparent complication. The PA-C was necessary for assistance with procedure for assistance in positioning, prepping, draping, retraction and closure. I attest to the content of the Intraoperative Record and any orders documented therein. Any exceptions are noted below.
[2017-09-23] MEDS ORDERED: ALUMINUM/MAGNESIUM/SIMETH (MAALOX MAX) 30 ML UDC PO PRN (09:30)
[2017-09-23] MEDS ORDERED: MoRPHine SULFATE 2 MG/ML CARP IV PRN (09:30)
[2017-09-23] MEDS ORDERED: ZOLPIDEM TARTRATE 5 MG TAB PO PRN (09:30)
[2017-09-23] MEDS ORDERED: OXYCODONE HCL IR 5 MG TAB (IMMEDIATE RELEASE) PO PRN (09:30)
[2017-09-23] MEDS ORDERED: MAGNESIUM HYDROXIDE SUSP 30 ML UDC PO PRN (09:30)
[2017-09-23] MEDS ORDERED: KETOROLAC TROMETHAMINE 30 MG/ML VIAL IV. PRN (09:30)
--- NOTE | 2017-09-23 09:57 | DIAGNOSTIC IMAGING REPORT ---
TWO VIEWS RIGHT KNEE CLINICAL HISTORY: Septic right knee arthroplasty. FINDINGS: AP and crosstable lateral portable views of the right knee are compared to study dated 03/17/2017. A right knee arthroplasty is in near anatomic alignment. There has been undersurface remodeling of the patella. No bony erosion or periostitis is identified. No acute fracture is seen. No periprosthetic lucency is identified. There are expected postoperative changes around the knee including skin clips, a surgical drain, soft tissue edema, and subcutaneous gas. Joint fluid is noted. IMPRESSION: Expected postoperative changes status post right knee arthroplasty. No acute osseous abnormality is seen. Electronically signed by: Thomas Jansen M.D. 09/23/2017 9:56 AM Dictated Date/Time: 09/23/2017 9:55 AM
--- NOTE | 2017-09-23 10:09 | Anesthesiology Progress Note ---
Anesthesia Post Op Note Date & Time Sep 23, 2017 at 10:09 Vital Signs Pain Intensity: 0 Vital Signs Past 12 Hours Date Time Temp Pulse Resp B/P (MAP) Pulse Ox O2 Delivery O2 Flow Rate FiO2 09/23/17 10:00 78 23 140/74 96 Oxymask 4 09/23/17 09:50 74 15 123/76 96 Oxymask 10 09/23/17 09:40 78 18 148/75 97 Oxymask 10 09/23/17 09:32 36.1 84 16 150/82 97 Oxymask 10 09/23/17 07:19 37.4 76 18 157/82 (107) 96 Room Air 09/23/17 04:00 37.0 75 16 160/83 (108) 97 Room Air 09/22/17 23:59 Room Air 09/22/17 23:43 37.9 81 18 139/79 (99) 95 Room Air Notes Mental Status: alert / awake / arousable, participated in evaluation Pt Amnestic to Procedure: Yes Nausea / Vomiting: adequately controlled Pain: adequately controlled Airway Patency, RR, SpO2: stable & adequate BP & HR: stable & adequate Hydration State: stable & adequate Anesthetic Complications: no major complications apparent
[2017-09-23] MEDS: ACETAMINOPHEN 500 MG TAB PO SCH ×3 (10:31→23:30)
[2017-09-23] MEDS: MULTIVITAMIN TAB PO SCH (10:31)
[2017-09-23] MEDS: AMLODIPINE BESYLATE 5 MG TAB PO SCH (10:32)
[2017-09-23] MEDS ORDERED: NURSING VERBAL MED ORDER ONE ×2 (13:45→17:45)
[2017-09-23] MEDS: VANCOMYCIN IV 1,750 MG in SODIUM CHLORIDE 0.9% 500ML 500 ML IV SCH (14:50)
[2017-09-23 15:22] LABS: BASO % 0.1 %; BASO ABS # 0.01 K/uL (0-0.2); EOS % 0.1 %; EOS ABS # 0.01 K/uL (0-0.5); HEMATOCRIT 41.6 % (42-52); HEMOGLOBIN 13.8 g/dL (14.0-18.0); IG# 0.03 K/uL (0.00-0.02); LYMPH % 5.4 %; LYMPH ABS # 0.54 K/uL (1.2-3.4); MEAN CORPUSCULAR HEMOGLOBIN 30.2 pg (25-34); MEAN CORPUSCULAR HGB CONC 33.2 g/dl (32-36); MEAN PLATELET VOLUME 9.3 fL (7.4-10.4); MONO % 10.8 %; MONO ABS # 1.08 K/uL (0.11-0.59); NEUT % 83.3 %; NEUT ABS # 8.34 K/uL (1.4-6.5); PLATELET COUNT 116 K/uL (130-400); RED CELL DISTRIBUTION WIDTH CV 14.5 % (11.5-14.5); RED CELL DISTRIBUTION WIDTH SD 48.5 fL (36.4-46.3); WHITE BLOOD COUNT 10.01 K/uL (4.8-10.8)
[2017-09-23 15:53] LABS: ALBUMIN 2.2 gm/dl (3.4-5.0); CALCIUM 7.8 mg/dl (8.5-10.1); CREATININE 1.01 mg/dl (0.60-1.40); POTASSIUM 3.7 mmol/L (3.5-5.1); TOTAL PROTEIN 6.1 gm/dl (6.4-8.2)
[2017-09-23] MEDS ORDERED: ALBUT/IPRATROP 3MG/0.5MG NEB 3 ML VIAL INH PRN (16:00)
--- NOTE | 2017-09-23 17:12 | Progress Note ---
Subjective Date of Service: Sep 23, 2017. Subjective Pt evaluation today including: conversation w/ patient, physical exam, lab review, review of studies, review of inpatient medication list Saw/examined the patient in room 221 He had a drainage of his R knee, doing well now pain controlled Denies any other symptoms states he was wheezing while sleeping Review of Systems Constitutional: No fever, No chills Respiratory: + cough, No sputum, No wheezing, No shortness of breath, No dyspnea on exertion, No dyspnea at rest, No hemoptysis Cardiac: No chest pain, No edema, No palpitations Abdomen: No pain, No nausea, No vomiting, No diarrhea Medications Current Inpatient Medications Medications (Trade) Dose Ordered Sig/Madi Route Start Time Stop Time Status Last Admin Dose Admin Acetaminophen (Tylenol Tab) 650 mg Q4H PRN PO 09/22/17 19:45 10/22/17 19:44 Future Hold Nitroglycerin (Nitrostat Tab) 0.4 mg UD PRN SL 09/22/17 19:45 10/22/17 19:44 Ondansetron HCl (Zofran Inj) 4 mg Q6H PRN IV 09/22/17 20:30 10/22/17 20:29 Morphine Sulfate (MoRPHine SULFATE INJ) 4 mg Q4H PRN IV 09/22/17 20:30 10/06/17 20:29 Amlodipine Besylate (Norvasc Tab) 5 mg QAM PO 09/23/17 09:00 10/23/17 08:59 09/23/17 10:32 5 MG Atenolol (Tenormin Tab) 25 mg QAM PO 09/23/17 09:00 10/23/17 08:59 09/23/17 10:32 25 MG Lorazepam (Ativan Tab) 0.5 mg TID PRN PO 09/22/17 21:30 10/22/17 21:29 Multivitamins (Multivitamin Tab) 1 tab QAM PO 09/23/17 09:00 10/23/17 08:59 09/23/17 10:31 1 TAB Pantoprazole Sodium (Protonix Tab) 40 mg BID PO 09/23/17 22:00 10/23/17 21:59 Oxycodone/ Acetaminophen (Percocet 5-325mg Tab) 1 tab Q6H PRN PO 09/22/17 21:30 10/06/17 21:29 Vancomycin HCl (Consult) 1 ea UD PRN N/A 09/23/17 01:00 10/23/17 00:59 Vancomycin HCl 1750 mg/Sodium Chloride 535 ml @ 200 mls/hr Q12H IV 09/23/17 14:00 11/04/17 13:59 09/23/17 14:50 200 MLS/HR Celecoxib (CeleBREX CAP) 200 mg BID PO 09/24/17 21:00 10/24/17 20:59 Oxycodone HCl (Roxicodone Immediate Rel Tab) 1 TABLET FOR PAIN RATING... Q4H PRN PO 09/23/17 09:30 10/07/17 09:29 Morphine Sulfate (MoRPHine SULFATE INJ) 2 mg Q2H PRN IV 09/23/17 09:30 10/07/17 09:29 Acetaminophen (Tylenol Tab) 1,000 mg Q8 PO 09/23/17 10:00 10/23/17 09:59 09/23/17 16:26 1,000 MG Magnesium Hydroxide (Milk Of Magnesia Susp) 30 ml Q6H PRN PO 09/23/17 09:30 10/23/17 09:29 Diphenhydramine HCl (Benadryl Cap) 25 mg Q8H PRN PO 09/23/17 09:30 10/23/17 09:29 Al Hydrox/Mg Hydrox/Simethicone (Maalox Max Susp) 15 ml Q4H PRN PO 09/23/17 09:30 10/23/17 09:29 Zolpidem Tartrate (Ambien Tab) 5 mg HSZ PRN PO 09/23/17 09:30 10/23/17 09:29 Ondansetron HCl (Zofran Inj) 4 mg Q6H PRN IV 09/23/17 09:30 10/23/17 09:29 Ketorolac Tromethamine (Toradol Inj) 30 mg Q6H PRN IV. 09/23/17 09:30 09/24/17 09:29 Aspirin (Ecotrin Tab) 81 mg BID PO 09/23/17 21:00 10/23/17 20:59 Albuterol/ Ipratropium (Duoneb) 3 ml Q4R PRN INH 09/23/17 16:00 10/23/17 15:59 Objective Vital Signs Date Time Temp Pulse Resp B/P (MAP) Pulse Ox O2 Delivery O2 Flow Rate FiO2 09/23/17 11:41 95 Nasal Cannula 2.0 09/23/17 11:38 36.5 65 18 112/67 (82) 86 Room Air 09/23/17 10:34 36.8 73 16 144/88 (106) 97 Nasal Cannula 2.0 09/23/17 10:25 96 Nasal Cannula 2.0 09/23/17 10:10 36.1 73 20 136/68 96 Nasal Cannula 4 09/23/17 10:00 78 23 140/74 96 Oxymask 4 09/23/17 09:50 74 15 123/76 96 Oxymask 10 09/23/17 09:40 78 18 148/75 97 Oxymask 10 09/23/17 09:32 36.1 84 16 150/82 97 Oxymask 10 09/23/17 07:19 37.4 76 18 157/82 (107) 96 Room Air 09/23/17 04:00 37.0 75 16 160/83 (108) 97 Room Air 09/22/17 23:59 Room Air 09/22/17 23:43 37.9 81 18 139/79 (99) 95 Room Air 09/22/17 18:50 37.5 80 18 172/78 97 Room Air Physical Exam General Appearance: no apparent distress Respiratory/Chest: no respiratory distress, no accessory muscle use, + wheezing (end expiratory wheezing diffusely) Cardiovascular: regular rate, rhythm, no edema, no murmur Extremities: normal inspection, no pedal edema Neurologic/Psychiatric: no motor/sensory deficits, alert, normal mood/affect Laboratory Results Last 24 Hours Test 09/22/17 21:05 09/22/17 22:45 09/23/17 15:12 White Blood Count 10.81 K/uL 10.01 K/uL Red Blood Count 4.93 M/uL 4.57 M/uL Hemoglobin 15.0 g/dL 13.8 g/dL Hematocrit 43.7 % 41.6 % Mean Corpuscular Volume 88.6 fL 91.0 fL Mean Corpuscular Hemoglobin 30.4 pg 30.2 pg Mean Corpuscular Hemoglobin Concent 34.3 g/dl 33.2 g/dl Platelet Count K/uL 116 K/uL Mean Platelet Volume 10.5 fL 9.3 fL Neutrophils (%) (Auto) 82.7 % 83.3 % Lymphocytes (%) (Auto) 3.9 % 5.4 % Monocytes (%) (Auto) 12.9 % 10.8 % Eosinophils (%) (Auto) 0.0 % 0.1 % Basophils (%) (Auto) 0.1 % 0.1 % Neutrophils # (Auto) 8.95 K/uL 8.34 K/uL Lymphocytes # (Auto) 0.42 K/uL 0.54 K/uL Monocytes # (Auto) 1.39 K/uL 1.08 K/uL Eosinophils # (Auto) 0.00 K/uL 0.01 K/uL Basophils # (Auto) 0.01 K/uL 0.01 K/uL RDW Standard Deviation 46.7 fL 48.5 fL RDW Coefficient of Variation 14.4 % 14.5 % Immature Granulocyte % (Auto) 0.4 % 0.3 % Immature Granulocyte # (Auto) 0.04 K/uL 0.03 K/uL Platelet Estimate DECREASED Sodium Level 134 mmol/L 136 mmol/L Potassium Level 3.5 mmol/L 3.7 mmol/L Chloride Level 101 mmol/L 102 mmol/L Carbon Dioxide Level 26 mmol/L 28 mmol/L Anion Gap 8.0 mmol/L 5.0 mmol/L Blood Urea Nitrogen 19 mg/dl 22 mg/dl Creatinine 1.06 mg/dl 1.01 mg/dl Est Creatinine Clear Calc Drug Dose 83.5 ml/min 88.3 ml/min Estimated GFR () 80.3 85.1 Estimated GFR (Non- 69.3 73.4 BUN/Creatinine Ratio 17.6 21.9 Random Glucose 152 mg/dl 157 mg/dl Estimated Average Glucose 134 mg/dl Hemoglobin A1c 6.3 % Calcium Level 7.9 mg/dl 7.8 mg/dl Magnesium Level 1.9 mg/dl Total Bilirubin 1.8 mg/dl 1.4 mg/dl Direct Bilirubin 0.7 mg/dl Aspartate Amino Transf (AST/SGOT) 23 U/L 28 U/L Alanine Aminotransferase (ALT/SGPT) 24 U/L 24 U/L Alkaline Phosphatase 83 U/L 101 U/L Total Protein 6.4 gm/dl 6.1 gm/dl Albumin 2.6 gm/dl 2.2 gm/dl Procalcitonin 34.47 ng/ml Lyme Disease IgG Antibody NEG Lyme Disease IgM Antibody NEG Urine Color DK YELLOW Urine Appearance CLEAR Urine pH 6.5 Urine Specific [place] 1.020 Urine Protein 1+ Urine Glucose (UA) NEG Urine Ketones NEG Urine Occult Blood 1+ Urine Nitrite NEG Urine Bilirubin NEG Urine Urobilinogen POS Urine Leukocyte Esterase NEG Urine WBC (Auto) 1-5 /hpf Urine RBC (Auto) 0-4 /hpf Urine Hyaline Casts (Auto) 0 /lpf Urine Epithelial Cells (Auto) 10-20 /lpf Urine Bacteria (Auto) NEG Globulin 3.9 gm/dl Albumin/Globulin Ratio 0.6 Assessment and Plan This is a 72 year old male with a past medical history of CAD s/p CABG/stents, HTN, HLD, prediabetes, recent R knee replacement - presents with R knee swelling. R Knee Swelling in the setting of Recent TKA - s/p I&D - appreciate ortho input - Vancomycin for infection - cultures pending Wheezing - no shortness of breath - nebs as needed - encouraged incentive spirometry use - CXR in AM CAD s/p CABG - continue aspirin (twice daily for DVT ppx) and b-mitra - noted statin intolerance HTN - BP stable, continue Coreg DVT ppx - ASA 81mg BID FULL CODE
[2017-09-23] MEDS ORDERED: MAGNESIUM SULFATE 1GM / D5W 100 ML IV SCH (17:30)
[2017-09-23] MEDS: ASPIRIN 81 MG ECTAB PO SCH (21:15)
[2017-09-23] MEDS: PANTOprazole SOD 40 MG TAB PO SCH (21:16)
[2017-09-24] VITALS (7 sets, daily range): BP systolic 104–134; BP diastolic 56–72; PULSE 59–75; TEMP 36.6–37.2; O2SAT 93–97
[2017-09-24] MEDS: VANCOMYCIN IV 1,750 MG in SODIUM CHLORIDE 0.9% 500ML 500 ML IV SCH ×2 (02:08→14:17)
[2017-09-24 05:43] LABS: HEMATOCRIT 39.6 % (42-52); HEMOGLOBIN 12.7 g/dL (14.0-18.0); MEAN CELL VOLUME 90.8 fL (80-100); MEAN CORPUSCULAR HEMOGLOBIN 29.1 pg (25-34); MEAN CORPUSCULAR HGB CONC 32.1 g/dl (32-36); MEAN PLATELET VOLUME 10.1 fL (7.4-10.4); PLATELET COUNT 124 K/uL (130-400); RED CELL DISTRIBUTION WIDTH CV 14.4 % (11.5-14.5); RED CELL DISTRIBUTION WIDTH SD 48.3 fL (36.4-46.3); WHITE BLOOD COUNT 7.16 K/uL (4.8-10.8)
[2017-09-24] MEDS: ACETAMINOPHEN 500 MG TAB PO SCH ×3 (06:00→21:53)
[2017-09-24 06:10] LABS: CALCIUM 7.4 mg/dl (8.5-10.1); CREATININE 1.04 mg/dl (0.60-1.40); POTASSIUM 3.9 mmol/L (3.5-5.1)
--- NOTE | 2017-09-24 07:01 | Progress Note ---
Progress Note Date of Service Sep 24, 2017. Progress Note ID Consult Dictated #[id number] A/P: 1. Infected right knee -Continue abx, gpc on gram stain, await final culture -will follow, thank you
--- NOTE | 2017-09-24 07:13 | DIAGNOSTIC IMAGING REPORT ---
CHEST ONE VIEW PORTABLE CLINICAL HISTORY: r/o infection dyspnea COMPARISON STUDY: 09/22/2017 FINDINGS: Stable cardiomegaly. Improvement in visibility left hemidiaphragm and left base. Lungs otherwise appear clear. IMPRESSION: Improving infiltrative change left base. Stable cardiomegaly. The above report was generated using voice recognition software. It may contain grammatical, syntax or spelling errors. Electronically signed by: Addy Otoole M.D. 09/24/2017 7:12 AM Dictated Date/Time: 09/24/2017 7:12 AM
[2017-09-24] MEDS: ASPIRIN 81 MG ECTAB PO SCH ×2 (07:36→21:52)
[2017-09-24] MEDS: MULTIVITAMIN TAB PO SCH (07:36)
[2017-09-24] MEDS: PANTOprazole SOD 40 MG TAB PO SCH ×2 (07:36→21:53)
[2017-09-24] MEDS: AMLODIPINE BESYLATE 5 MG TAB PO SCH (07:37)
--- NOTE | 2017-09-24 08:07 | INFECT. DISEASE CONSULTATION ---
DATE OF CONSULTATION: 09/24/2017 HISTORY OF PRESENT ILLNESS: This is a 72-year-old gentleman who was admitted to the hospital on the after he had worsening right knee pain. He states that he was initially seen in [place] and was subsequently transferred to [facility] for admission. He did begin to have knee pain on Monday. He golfed 18 holes on Monday and felt well, Monday he began with some pain, diffuse myalgias and subjective fevers at home. This continued to worsen and on Monday when he woke up he noticed his knee was red with streaking and he was unable to bear weight. He was taken to the operating room and had a poly exchange. He tolerated this procedure well. His OR cultures are pending, but Gram stain has gram positive cocci. He is empirically on vancomycin. He initially had a leukocytosis of 10.8, this has improved. He has been afebrile, although he does admit to some sweats and chills throughout the night. He is feeling much better today. His appetite has returned. He denies any fever. He denies any pain, although he did have pain medication prior to my examination. He is tolerating antibiotics well. He denies any chest pain, cough, shortness of breath, nausea, vomiting, diarrhea or abdominal pain. His remaining review of systems is reviewed and unremarkable. PAST MEDICAL HISTORY: Significant for degenerative joint disease. He also has hypertension, hypercholesterolemia, BPH, coronary artery disease. PAST SURGICAL HISTORY: CABG, stent placement, fundoplication, cholecystectomy, hernia repair, total knee replacement bilaterally with revision on the right. FAMILY HISTORY: Noncontributory. SOCIAL HISTORY: Negative for tobacco use, alcohol use or drug use. ALLERGIES: HE HAS ALLERGIES TO ENALAPRIL, LISINOPRIL, AND STATINS. CURRENT MEDICATIONS: Celebrex, Protonix, aspirin, albuterol, vancomycin, Tylenol, Roxicodone, morphine, milk of magnesia, Benadryl, Maalox, Ambien, Zofran, Toradol, Norvasc, atenolol, multivitamins, Ativan, Percocet. PHYSICAL EXAMINATION: VITAL SIGNS: He is afebrile, pulse 66, respiratory rate 18, blood pressure 134/69, oxygen saturation is 95% on room air. GENERAL: He is awake, alert and oriented x3. He is in no acute distress. HEENT: Mucous membranes are moist. Extraocular muscles are intact. HEART: Regular. LUNGS: Clear bilaterally. ABDOMEN: Soft, nontender, nondistended. EXTREMITIES: Right lower extremity dressing is clean, dry and intact. There is no edema bilaterally. LABORATORY STUDIES: CBC today, white blood cell count 7.1, hemoglobin 12.7, platelets are 124. Chemistry panel: Sodium 136, potassium 3.9, chloride 106, bicarbonate 29, BUN 23, creatinine 1.0. Glucose 136. LFTs are within normal limits. UA is negative. Lyme screen done on the 3rd is negative. OR cultures are pending, but showing gram positive cocci. Chest x-ray is unremarkable. ASSESSMENT AND PLAN: Infected right total knee. He is status post a poly exchange. He will remain on vancomycin and we will follow additional cultures and make final recommendations at that time. Thank you for this consultation.
[2017-09-24] MEDS ORDERED: MULTIVITAMIN TAB PO SCH (09:00)
--- NOTE | 2017-09-24 11:25 | Orthopedic Progress Note ---
Orthopedic Progress Note Date of Service Sep 24, 2017. Subjective Post OP Day: 1 Reports: feeling well, Denies: chest pain, SOB, nausea / vomiting, light headedness, calf pain Additional Notes: Pt was up ambulating in the BR upon visit. Returned to bed without difficulty. States the knee feels "a little rough" but not as bad as it was. No new complaints presently. Pain fairly well controlled. Objective calves soft nontender, N/V intact, dressing C/D/I, A&O x3, toes mobile, hemovac drainage (60ml latest shift) Date Time Temp Pulse Resp B/P (MAP) Pulse Ox O2 Delivery O2 Flow Rate FiO2 09/24/17 11:18 36.6 59 16 112/65 (81) 97 Room Air 09/24/17 08:00 37.2 66 18 134/69 (90) 95 Room Air 2.0 09/24/17 08:00 95 Room Air 2.0 09/24/17 06:27 37.2 66 18 134/69 (90) 95 Room Air 09/24/17 03:28 36.6 69 18 129/62 (84) 95 Room Air 09/23/17 23:45 36.9 66 18 120/68 (85) 95 Room Air 09/23/17 20:08 37.2 76 18 108/66 (80) 95 Room Air 09/23/17 20:00 Room Air 09/23/17 11:41 95 Nasal Cannula 2.0 09/23/17 11:38 36.5 65 18 112/67 (82) 86 Room Air Laboratory Results 24 Hours: Test 09/23/17 15:12 09/24/17 05:32 White Blood Count 10.01 K/uL Red Blood Count 4.57 M/uL Hemoglobin 13.8 g/dL 12.7 g/dL Hematocrit 41.6 % 39.6 % Mean Corpuscular Volume 91.0 fL Mean Corpuscular Hemoglobin 30.2 pg Mean Corpuscular Hemoglobin Concent 33.2 g/dl Platelet Count 116 K/uL Mean Platelet Volume 9.3 fL Neutrophils (%) (Auto) 83.3 % Lymphocytes (%) (Auto) 5.4 % Monocytes (%) (Auto) 10.8 % Eosinophils (%) (Auto) 0.1 % Basophils (%) (Auto) 0.1 % Neutrophils # (Auto) 8.34 K/uL Lymphocytes # (Auto) 0.54 K/uL Monocytes # (Auto) 1.08 K/uL Eosinophils # (Auto) 0.01 K/uL Basophils # (Auto) 0.01 K/uL Additional Notes: ---- RUN DATE: 09/24/17 [facility] LAB PAGE 1 RUN TIME: 820 Specimen Inquiry PATIENT: FARHAT BALL LOC: [place] U # : [id number] AGE/SX: 72/M ROOM: [facility] REG : 09/22/[address]: Santosh Marin M.D. : 1945 BED: 1 DIS : STATUS: ADM IN TLOC: SPEC #: [id number] MULU: 09/23/17 STATUS: RES REQ #: [id number] RECD: 09/23/[address]: Santosh Marin M.D. SOURCE: TISSUE ENTR: 09/23/[address]: Rajiv Gilbert M.D. [facility] K[facility] AdilsonbriseydaClem M.D. ORDERED: AER/AMRIT CULTSMR Procedure Result Verified Site GRAM STAIN Final 09/23/17 RESULT RARE GRAM POSITIVE COCCI FEW WBCs SEEN OR AER/AMRIT CULT Preliminary 09/24/17 Organism 1 GROUP G BETA STREP QUANITY FEW SENS NO SENSITIVITY TO FOLLOW PLEASE SEE CULTURE NUMBER [id number] FOR SENSITIVITIES. Assessment & Plan Assessment: POD 1 s/p Right I&D / Poly change Right Septic TKA Plan: PT/OT WBAT with gentle ROM Antibx as per ID/Med Team Cx as noted above Plan for dressing change tomorrow. Drain may remain an additional day dependent on amount of drainage. Inhouse Planning Pain Management: Celebrex, Morphine, Oxy IR DVT Prophylaxis: TEDs, SCDs, ASA Discharge Planning Discharge Planning: home with IV medication
--- NOTE | 2017-09-24 13:29 | Progress Note ---
Internal Med Progress Note Date of Service: Sep 24, 2017. Provider Documentation: SUBJECTIVE: The patient was seen and examined in telemetry floor. He has significant CAD and underwent right hip debridement for infection Medically stable and denies any symptoms except right knee pain OBJECTIVE: Vital Signs-as noted below Exam: General-no apparent distress at rest Eyes-normal ENT-normal Neck-supple Lungs-clear to auscultate bilaterally Heart-regular, no murmur Abdomen-benign soft,, nontender and no organomegaly Extremities-trace edema on the right, right knee is bandaged, painful movement of the right lower extremity Neuro-alert, awake and oriented 3 Lab data as noted below. ASSESSMENT & PLAN: This is a 72 year old male with a past medical history of CAD s/p CABG/stents, HTN, HLD, prediabetes, recent R knee replacement - presents with R knee swelling. Right Knee Infection S/P Rt TKA in February - s/p I&D;POD#1 - appreciate ortho input - Vancomycin for infection - cultures Group G Beta Strep:Sensitivity pending -Status post PICC line placement -appreciate ID input Wheezing - no shortness of breath - nebs as needed - encouraged incentive spirometry use - CXR in AM-Improving Infiltrative change right base CAD s/p CABG - continue aspirin (twice daily for DVT ppx) and b-mitra - noted statin intolerance -No acute symptoms HTN - BP stable, continue Coreg DVT ppx - ASA 81mg BID FULL CODE DISPOSITION Medically stable Disposition as per Ortho Vital Signs: Date Time Temp Pulse Resp B/P (MAP) Pulse Ox O2 Delivery O2 Flow Rate FiO2 09/24/17 11:18 36.6 59 16 112/65 (81) 97 Room Air 09/24/17 08:00 37.2 66 18 134/69 (90) 95 Room Air 2.0 09/24/17 08:00 95 Room Air 2.0 09/24/17 06:27 37.2 66 18 134/69 (90) 95 Room Air 09/24/17 03:28 36.6 69 18 129/62 (84) 95 Room Air 09/23/17 23:45 36.9 66 18 120/68 (85) 95 Room Air 09/23/17 20:08 37.2 76 18 108/66 (80) 95 Room Air 09/23/17 20:00 Room Air Lab Results: Results Past 24 Hours Test 8/4/18 15:12 09/24/17 05:32 Range/Units White Blood Count 10.01 7.16 4.8-10.8 K/uL Red Blood Count 4.57 4.36 4.7-6.1 M/uL Hemoglobin 13.8 12.7 14.0-18.0 g/dL Hematocrit 41.6 39.6 42-52 % Mean Corpuscular Volume 91.0 90.8 80-100 fL Mean Corpuscular Hemoglobin 30.2 29.1 25-34 pg Mean Corpuscular Hemoglobin Concent 33.2 32.1 32-36 g/dl Platelet Count 116 124 130-400 K/uL Mean Platelet Volume 9.3 10.1 7.4-10.4 fL Neutrophils (%) (Auto) 83.3 % Lymphocytes (%) (Auto) 5.4 % Monocytes (%) (Auto) 10.8 % Eosinophils (%) (Auto) 0.1 % Basophils (%) (Auto) 0.1 % Neutrophils # (Auto) 8.34 1.4-6.5 K/uL Lymphocytes # (Auto) 0.54 1.2-3.4 K/uL Monocytes # (Auto) 1.08 0.11-0.59 K/uL Eosinophils # (Auto) 0.01 0-0.5 K/uL Basophils # (Auto) 0.01 0-0.2 K/uL RDW Standard Deviation 48.5 48.3 36.4-46.3 fL RDW Coefficient of Variation 14.5 14.4 11.5-14.5 % Immature Granulocyte % (Auto) 0.3 % Immature Granulocyte # (Auto) 0.03 0.00-0.02 K/uL Sodium Level 136 136 136-145 mmol/L Potassium Level 3.7 3.9 3.5-5.1 mmol/L Chloride Level 102 106 98-107 mmol/L Carbon Dioxide Level 28 29 21-32 mmol/L Anion Gap 5.0 1.0 3-11 mmol/L Blood Urea Nitrogen 22 23 7-18 mg/dl Creatinine 1.01 1.04 0.60-1.40 mg/dl Est Creatinine Clear Calc Drug Dose 88.3 85.7 ml/min Estimated GFR () 85.1 82.2 Estimated GFR (Non- 73.4 70.9 BUN/Creatinine Ratio 21.9 22.3 10-20 Random Glucose 157 136 70-99 mg/dl Calcium Level 7.8 7.4 8.5-10.1 mg/dl Total Bilirubin 1.4 0.2-1 mg/dl Aspartate Amino Transf (AST/SGOT) 28 15-37 U/L Alanine Aminotransferase (ALT/SGPT) 24 12-78 U/L Alkaline Phosphatase 101 45-117 U/L Total Protein 6.1 6.4-8.2 gm/dl Albumin 2.2 3.4-5.0 gm/dl Globulin 3.9 2.5-4.0 gm/dl Albumin/Globulin Ratio 0.6 0.9-2
[2017-09-24] MEDS ORDERED: NURSING VERBAL MED ORDER ONE (16:30)
[2017-09-24] MEDS: CeleBREX 200 MG CAP PO SCH (21:54)
[2017-09-25] VITALS (7 sets, daily range): BP systolic 92–144; BP diastolic 53–93; PULSE 58–66; TEMP 36.6–37.3; O2SAT 94–97
[2017-09-25] MEDS ORDERED: VANCOMYCIN TROUGH ONE (01:30)
[2017-09-25] MEDS: VANCOMYCIN IV 1,750 MG in SODIUM CHLORIDE 0.9% 500ML 500 ML IV SCH (02:35)
[2017-09-25 04:41] LABS: HEMATOCRIT 35.7 % (42-52); HEMOGLOBIN 11.5 g/dL (14.0-18.0); MEAN CELL VOLUME 90.4 fL (80-100); MEAN CORPUSCULAR HEMOGLOBIN 29.1 pg (25-34); MEAN CORPUSCULAR HGB CONC 32.2 g/dl (32-36); MEAN PLATELET VOLUME 9.7 fL (7.4-10.4); PLATELET COUNT 131 K/uL (130-400); RED CELL DISTRIBUTION WIDTH CV 14.3 % (11.5-14.5); RED CELL DISTRIBUTION WIDTH SD 47.6 fL (36.4-46.3); WHITE BLOOD COUNT 6.76 K/uL (4.8-10.8)
[2017-09-25 05:04] LABS: CALCIUM 7.3 mg/dl (8.5-10.1); CREATININE 0.85 mg/dl (0.60-1.40); POTASSIUM 3.5 mmol/L (3.5-5.1)
[2017-09-25] MEDS: ACETAMINOPHEN 500 MG TAB PO SCH ×4 (05:54→21:28)
--- NOTE | 2017-09-25 07:35 | Orthopedic Progress Note ---
Orthopedic Progress Note Date of Service Sep 25, 2017. Subjective Post OP Day: 2 Reports: feeling well, pain controlled w PO medications, Denies: complaints, chest pain, SOB, nausea / vomiting, calf pain Objective calves soft nontender, N/V intact, dressing C/D/I, A&O x3, toes mobile, hemovac drainage Sitting in bedside chair this morning. Ambulated to bed without difficulty using walker. Prevena intact. Mild swelling, no erythema. Hemovac drainage 40mL last shift. Date Time Temp Pulse Resp B/P (MAP) Pulse Ox O2 Delivery O2 Flow Rate FiO2 09/25/17 07:00 36.6 58 18 144/76 (98) 97 Room Air 09/25/17 02:52 36.7 62 18 133/72 (92) 96 Room Air 09/24/17 23:45 36.9 68 18 131/63 (85) 95 Room Air 09/24/17 20:00 Room Air 09/24/17 20:00 36.9 64 18 104/56 (72) 93 Room Air 09/24/17 15:36 37.2 75 18 122/72 (89) 96 Room Air 09/24/17 11:18 36.6 59 16 112/65 (81) 97 Room Air 09/24/17 08:00 37.2 66 18 134/69 (90) 95 Room Air 2.0 09/24/17 08:00 95 Room Air 2.0 Laboratory Results 24 Hours: Test 09/25/17 04:17 Hematocrit 35.7 % Hemoglobin 11.5 g/dL Assessment & Plan Assessment: POD 2 s/p Right I&D / Poly change Right Septic TKA Acute Blood Loss anemia Plan: -PT/OT WBAT with gentle ROM -Antibx as per ID/Med Team -Cx Group G Strep, is pansensitive -Dressing removed today, Prevena intact. Drain may remain an additional day dependent on amount of drainage. Acute Blood loss anemia-Hgb to 11.5 from 15 on admission. Likely due to surgical loss vs dilutional effect. Will follow. Inhouse Planning Pain Management: Celebrex, Morphine, Oxy IR DVT Prophylaxis: TEDs, SCDs, ASA Discharge Planning Discharge Planning: home with IV medication
[2017-09-25] MEDS: CeleBREX 200 MG CAP PO SCH ×2 (07:57→21:29)
[2017-09-25] MEDS: MULTIVITAMIN TAB PO SCH (07:57)
[2017-09-25] MEDS: PANTOprazole SOD 40 MG TAB PO SCH ×2 (07:57→21:29)
[2017-09-25] MEDS: AMLODIPINE BESYLATE 5 MG TAB PO SCH (07:57)
[2017-09-25] MEDS: ASPIRIN 81 MG ECTAB PO SCH ×2 (07:58→21:29)
--- NOTE | 2017-09-25 08:05 | Anesthesiology Progress Note ---
Anesthesia Post Op Note Date & Time Sep 25, 2017 at 08:05 Vital Signs Vital Signs Past 12 Hours Date Time Temp Pulse Resp B/P (MAP) Pulse Ox O2 Delivery O2 Flow Rate FiO2 09/25/17 07:00 36.6 58 18 144/76 (98) 97 Room Air 09/25/17 02:52 36.7 62 18 133/72 (92) 96 Room Air 09/24/17 23:45 36.9 68 18 131/63 (85) 95 Room Air Notes Mental Status: alert / awake / arousable, participated in evaluation Pt Amnestic to Procedure: Yes Nausea / Vomiting: adequately controlled Pain: adequately controlled Airway Patency, RR, SpO2: stable & adequate BP & HR: stable & adequate Hydration State: stable & adequate Anesthetic Complications: no major complications apparent
--- NOTE | 2017-09-25 10:07 | Progress Note ---
Subjective Date of Service: Sep 25, 2017. Subjective Pt evaluation today including: conversation w/ patient, physical exam, chart review, lab review pt oob to chair, feeling better, pain controlled. denies f/c. vac remains. wbc nml. OR cultures with smith sensitive Group G strep. tolerating abx. no cp, sob, abd pain, no n/v/d. remaining ros reviewed and are negative. Objective Vital Signs Date Time Temp Pulse Resp B/P (MAP) Pulse Ox O2 Delivery O2 Flow Rate FiO2 09/25/17 07:00 36.6 58 18 144/76 (98) 97 Room Air 09/25/17 02:52 36.7 62 18 133/72 (92) 96 Room Air 09/24/17 23:45 36.9 68 18 131/63 (85) 95 Room Air 09/24/17 20:00 Room Air 09/24/17 20:00 36.9 64 18 104/56 (72) 93 Room Air 09/24/17 15:36 37.2 75 18 122/72 (89) 96 Room Air 09/24/17 11:18 36.6 59 16 112/65 (81) 97 Room Air Physical Exam General Appearance: WD/WN, no apparent distress Eyes: normal inspection, EOMI Neck: supple Respiratory/Chest: lungs clear, normal breath sounds, no respiratory distress Cardiovascular: regular rate, rhythm, no edema, no murmur Abdomen: non tender, soft Extremities: non-tender, no pedal edema Neurologic/Psychiatric: alert, oriented x 3 Skin: normal color Comments: r knee vac in place. no erythema, warmth Laboratory Results Item Value Date Time Gram Stain - Final Resulted 09/23/17817 Incision Site Knee Right Gram Stain - Final Resulted 09/23/17826 Tissue Knee Right Last 24 Hours Test 09/25/17 01:42 09/25/17 04:17 Vancomycin Level Trough 17.1 mcg/ml White Blood Count 6.76 K/uL Red Blood Count 3.95 M/uL Hemoglobin 11.5 g/dL Hematocrit 35.7 % Mean Corpuscular Volume 90.4 fL Mean Corpuscular Hemoglobin 29.1 pg Mean Corpuscular Hemoglobin Concent 32.2 g/dl RDW Standard Deviation 47.6 fL RDW Coefficient of Variation 14.3 % Platelet Count 131 K/uL Mean Platelet Volume 9.7 fL Sodium Level 138 mmol/L Potassium Level 3.5 mmol/L Chloride Level 107 mmol/L Carbon Dioxide Level 27 mmol/L Anion Gap 4.0 mmol/L Blood Urea Nitrogen 18 mg/dl Creatinine 0.85 mg/dl Est Creatinine Clear Calc Drug Dose 104.5 ml/min Estimated GFR () 100.2 Estimated GFR (Non- 86.4 BUN/Creatinine Ratio 21.7 Random Glucose 145 mg/dl Calcium Level 7.3 mg/dl Magnesium Level 2.1 mg/dl Assessment and Plan (1) SEPTIC RIGHT TKA Assessment & Plan: will change to rocephin daily, will need 6 weeks. will need picc line. will need weekly cbc, cmp, esr while on abx. can follow with ID post d/c.
[2017-09-25] MEDS: CEFTRIAXONE SOD INJ 2,000 MG in DEXTROSE 5% 50ML 50 ML IV SCH (11:05)
[2017-09-25] MEDS ORDERED: POLYETHYLENE (MIRALAX) 17 GM PACK PO PRN (14:15)
--- NOTE | 2017-09-25 14:46 | Progress Note ---
Internal Med Progress Note Date of Service: Sep 25, 2017. Provider Documentation: SUBJECTIVE: The patient was seen and examined in telemetry floor. He has significant CAD and underwent right hip debridement for infection Medically stable and denies any symptoms except right knee pain 09/25: Denies any symptoms today except pain in the right knee and right leg Right leg pain and swelling are improving Out of bed in a chair Getting physical therapy OBJECTIVE: Vital Signs-as noted below Exam: General-no apparent distress at rest Eyes-normal ENT-normal Neck-supple Lungs-clear to auscultate bilaterally Heart-regular, no murmur Abdomen-benign soft,, nontender and no organomegaly Extremities-trace edema on the right, right knee is bandaged, painful movement of the right lower extremity Right knee and leg swelling are improved Neuro-alert, awake and oriented 3 Lab data as noted below. ASSESSMENT & PLAN: This is a 72 year old male with a past medical history of CAD s/p CABG/stents, HTN, HLD, prediabetes, recent R knee replacement - presents with R knee swelling. Right Knee Infection S/P Rt TKA in February - s/p I&D;POD#2 - appreciate ortho input -i/v Vancomycin for infection - cultures Group G Beta Strep: Pansensitive -Status post PICC line placement -appreciate ID input-plan to continue ceftriaxone for 6 weeks in total -will need weekly cbc, cmp, esr while on abx -Medically stable Wheezing - no shortness of breath - nebs as needed - encouraged incentive spirometry use - CXR in AM-Improving Infiltrative change right base -No more wheezing and/or shortness of breath CAD s/p CABG - continue aspirin (twice daily for DVT ppx) and b-mitra - noted statin intolerance -No acute symptoms -Electrolytes are normal HTN - BP stable, continue Coreg DVT ppx - ASA 81mg BID FULL CODE DISPOSITION Medically stable Disposition as per Ortho Vital Signs: Date Time Temp Pulse Resp B/P (MAP) Pulse Ox O2 Delivery O2 Flow Rate FiO2 09/25/17 11:15 36.9 60 18 118/93 (101) 95.0 09/25/17 08:00 Room Air 09/25/17 07:00 36.6 58 18 144/76 (98) 97 Room Air 09/25/17 02:52 36.7 62 18 133/72 (92) 96 Room Air 09/24/17 23:45 36.9 68 18 131/63 (85) 95 Room Air 09/24/17 20:00 Room Air 09/24/17 20:00 36.9 64 18 104/56 (72) 93 Room Air 09/24/17 15:36 37.2 75 18 122/72 (89) 96 Room Air Lab Results: Results Past 24 Hours Test 09/25/17 01:42 09/25/17 04:17 Range/Units Vancomycin Level Trough 17.1 SEE COMMENT mcg/ml White Blood Count 6.76 4.8-10.8 K/uL Red Blood Count 3.95 4.7-6.1 M/uL Hemoglobin 11.5 14.0-18.0 g/dL Hematocrit 35.7 42-52 % Mean Corpuscular Volume 90.4 80-100 fL Mean Corpuscular Hemoglobin 29.1 25-34 pg Mean Corpuscular Hemoglobin Concent 32.2 32-36 g/dl RDW Standard Deviation 47.6 36.4-46.3 fL RDW Coefficient of Variation 14.3 11.5-14.5 % Platelet Count 131 130-400 K/uL Mean Platelet Volume 9.7 7.4-10.4 fL Sodium Level 138 136-145 mmol/L Potassium Level 3.5 3.5-5.1 mmol/L Chloride Level 107 98-107 mmol/L Carbon Dioxide Level 27 21-32 mmol/L Anion Gap 4.0 3-11 mmol/L Blood Urea Nitrogen 18 7-18 mg/dl Creatinine 0.85 0.60-1.40 mg/dl Est Creatinine Clear Calc Drug Dose 104.5 ml/min Estimated GFR () 100.2 Estimated GFR (Non- 86.4 BUN/Creatinine Ratio 21.7 10-20 Random Glucose 145 70-99 mg/dl Calcium Level 7.3 8.5-10.1 mg/dl Magnesium Level 2.1 1.8-2.4 mg/dl
[2017-09-25] MEDS: WELCHOL~ORDER AWAITING ACTION SCH ×2 (15:21→23:17)
[2017-09-26] MEDS ORDERED: VANCOMYCIN TROUGH ONE (01:30)
[2017-09-26 04:34] VITALS: BP 133/72; PULSE 62; TEMP 36.4; O2SAT 94
[2017-09-26] MEDS: ACETAMINOPHEN 500 MG TAB PO SCH ×2 (05:46→15:31)
--- NOTE | 2017-09-26 07:35 | Orthopedic Progress Note ---
Orthopedic Progress Note Date of Service Sep 26, 2017. Subjective Post OP Day: 3 Reports: feeling well, pain controlled w PO medications, Denies: complaints, chest pain, SOB, light headedness, calf pain Objective calves soft nontender, N/V intact, dressing C/D/I, A&O x3, toes mobile, hemovac drainage Hemovac draining, Prevena intact. -Patient waiting to talk with about home health vs [facility] for his IV medication. Date Time Temp Pulse Resp B/P (MAP) Pulse Ox O2 Delivery O2 Flow Rate FiO2 09/26/17 04:34 36.4 62 16 133/72 (92) 94 Room Air 09/26/17 00:00 Room Air 09/25/17 23:29 37.2 66 18 133/67 (89) 94 Room Air 09/25/17 20:09 96 Room Air 09/25/17 19:50 37.2 64 18 128/64 (85) 96 Room Air 09/25/17 15:20 37.3 63 16 92/53 (66) 96 Room Air 09/25/17 11:15 36.9 60 18 118/93 (101) 95.0 09/25/17 08:00 Room Air Assessment & Plan Assessment: POD 3 s/p Right I&D / Poly change Right Septic TKA Acute Blood Loss anemia Plan: -PT/OT WBAT with gentle ROM -Antibx as per ID/Med Team-Will need Ceftriaxone daily x 6 weeks, as well as weekly labs. -Cx Group G Strep, is pansensitive -Prevena intact. -D/C planning likely home health vs [facility] for his IV medications. Patient needs to discuss with his . Acute Blood loss anemia-Hgb to 11.5 from 15 on admission. Likely due to surgical loss vs dilutional effect. Will follow. Inhouse Planning Pain Management: Celebrex, PO Tylenol, Oxy IR DVT Prophylaxis: TEDs, SCDs, ASA Discharge Planning Discharge Planning: home with IV medication
[2017-09-26 07:36] VITALS: BP 150/83; PULSE 67; TEMP 36.9; O2SAT 96
[2017-09-26] MEDS ORDERED: ASPI-320 PO (07:45)
[2017-09-26] MEDS ORDERED: RCPAV1 IV ×3 (07:45→10:24)
[2017-09-26] MEDS ORDERED: OXYC-90 PO (07:45)
[2017-09-26] MEDS ORDERED: ACET-1138 PO (07:45)
[2017-09-26] MEDS: ASPIRIN 81 MG ECTAB PO SCH (07:49)
[2017-09-26] MEDS: CeleBREX 200 MG CAP PO SCH (07:50)
[2017-09-26] MEDS: PANTOprazole SOD 40 MG TAB PO SCH (07:50)
[2017-09-26] MEDS: AMLODIPINE BESYLATE 5 MG TAB PO SCH (07:50)
[2017-09-26] MEDS: WELCHOL~ORDER AWAITING ACTION SCH ×2 (07:50→16:00)
[2017-09-26] MEDS: MULTIVITAMIN TAB PO SCH (07:50)
--- NOTE | 2017-09-26 07:58 | Discharge Instructions ---
Discharge Instructions Date of Service Sep 26, 2017. Admission Reason for Admission: Septic, Right Total Knee Discharge Discharge Diagnosis / Problem: Septic Right Total Knee Arthroplasty Discharge Goals Goal(s): Decrease discomfort, Improve function Activity Recommendations Activity Limitations: per Instructions/Follow-up section . Instructions / Follow-Up Instructions / Follow-Up ACTIVITY RECOMMENDATIONS: SELF CARE INSTRUCTIONS AFTER TOTAL KNEE REPLACEMENT A. You may need to continue a physical therapy program after discharge from the hospital. There are several options available to you. Your doctor will assist you in selecting the best one for you. 1. An out-patient facility 2 to 3 times a week for therapy or home therapy. 2. Continue working on all exercises taught to you in the hospital. Your goals should be to increase bending of your knee to 90 degrees and beyond and to fully straighten your knee. B. You may progress at your own pace from walking with a walker or crutches to a cane; then to no assistive devices. C. Make walking a part of your daily routine. Be up as much as comfortable with rest periods throughout the day. Rest with leg elevation is very important. Use the ice wrap frequently for the first 3-4 weeks. D. There are no restrictions on activities. You may ride in a car, shop, participate in mechanical technical service specialist and all social activities. E. Wear the long elastic stockings (MIKIE hose) 20 hours a day for 2 weeks after surgery. They can be removed several times a day for laundering and for a bath. F. You may shower, no tub baths until cleared by your doctor. SPECIAL CARE INSTRUCTIONS: VERY IMPORTANT TO READ AND REVIEW A. There are a few signs you need to watch for after you are home. Call [facility] if you notice any of the followin. Increased severe knee pain. Some pain is expected especially when you exercise. 2. Increased swelling in your leg or knee; pain or swelling of the calf muscle in either lower leg. 3. Any fluid drainage from the incision. 4. Shortness of breath or chest pain. B. Please call [facility] at if you have any concerns or questions about your operation or recovery. The doctor or his nurse will return your call promptly. C. You must take antibiotics before dental work, bladder, bowel or other surgery. Your doctor will provide you with a permanent care to carry describing this precaution. IMPORTANT: * REMEMBER TO TAKE ASPIRIN, 81 MG, TWICE DAILY FOR 4 WEEKS UNLESS OTHERWISE DIRECTED. THIS IS YOUR BLOOD THINNER. * HIGH RISK PATIENTS MAY BE PRESCRIBED A STRONGER BLOOD THINNER. THIS WILL BE PROVIDED AT DISCHARGE. * CALL IF INCREASED PAIN, REDNESS, DRAINAGE OR FEVER GREATER THAT 101. * WEAR MIKIE HOSE 20 HOURS PER DAY FOR 2 WEEKS. * YOU HAVE A PREVENA WOUND VAC DRESSING. THIS SHOULD REMAIN IN PLACE FOR 7 DAYS POST SURGERY. Prevena- This is a large suction dressing covering your incision. This will help pull any excess drainage from the wound and allow your incision to heal properly. You may shower with this if you can keep the unit outside of the shower. If any bleeding or leakage is noted please call your doctor's office. This will remain on your incision for 7 days and then should be removed. This can be done yourself or by the home nursing staff if applicable. The entire unit is disposable once removed. Once removed, keep incision clean and dry. If redness or drainage is noted, please call your surgeon. FOLLOW UP VISIT: If appointment is not already scheduled: Please call [facility] to make a follow-up appointment for 2 weeks after your surgery at . Current Hospital Diet Patient's current hospital diet: AHA Diet (Heart Healthy) Discharge Diet Recommended Diet: Regular Diet Procedures Procedures Performed: Right Knee Incision and Drainage with Poly Exchange Pending Studies Studies pending at discharge: no Laboratory Results Hemoglobin A1c Test 09/22/17 21:05 Range/Units Estimated Average Glucose 134 mg/dl Hemoglobin A1c 6.3 H 4.5-5.6 % Medical Emergencies . Who to Call and When: Medical Emergencies: If at any time you feel your situation is an emergency, please call 911 immediately. . Non-Emergent Contact Non-Emergency issues call your: Oiler Bander Call Non-Emergent contact if: temperature is above 101, your pain is not controlled, your pain is worsening, your pain is concerning you, wound has increased drainage, wound has increased redness, wound has increased pain . "Provider Documentation" section prepared by Cm Quiroz. . Saw Straightener Recommendations Saw Straightener Recommendations: -Per Dr. Ivanna Vyas of Infectious disease you will be required to be on IV antibiotics daily for 6 weeks. You will also need weekly lab draws. -Follow up with Dr. Vyas's office upon discharge [place] Drug Monitoring Program Search Results: patient reviewed within database, no issues identified
[2017-09-26] MEDS: CEFTRIAXONE SOD INJ 2,000 MG in DEXTROSE 5% 50ML 50 ML IV SCH (10:34)
[2017-09-26 11:21] VITALS: BP 167/87; PULSE 60; TEMP 37.2; O2SAT 97
[2017-09-26 14:57] VITALS: BP 167/82; PULSE 59; TEMP 37.2; O2SAT 96
--- NOTE | 2017-09-26 15:22 | Progress Note ---
Internal Med Progress Note Date of Service: Sep 26, 2017. Provider Documentation: SUBJECTIVE: The patient was seen and examined in telemetry floor. He has significant CAD and underwent right hip debridement for infection Medically stable and denies any symptoms except right knee pain 09/25: Denies any symptoms today except pain in the right knee and right leg Right leg pain and swelling are improving Out of bed in a chair Getting physical therapy 09/26: Medically stable and denies any symptoms except pain in right knee and leg Right knee and leg swelling have been getting better We will go home as per primary OBJECTIVE: Vital Signs-as noted below Exam: General-no apparent distress at rest Eyes-normal ENT-normal Neck-supple Lungs-clear to auscultate bilaterally Heart-regular, no murmur Abdomen-benign soft,, nontender and no organomegaly Extremities-trace edema on the right, right knee is bandaged, painful movement of the right lower extremity Right knee and leg swelling are improved Neuro-alert, awake and oriented 3 Lab data as noted below. ASSESSMENT & PLAN: This is a 72 year old male with a past medical history of CAD s/p CABG/stents, HTN, HLD, prediabetes, recent R knee replacement - presents with R knee swelling. Right Knee Infection S/P Rt TKA in February - s/p I&D;POD#3 - appreciate ortho input -i/v Vancomycin for infection - cultures Group G Beta Strep: Pansensitive -Status post PICC line placement -appreciate ID input-plan to continue ceftriaxone for 6 weeks in total -will need weekly cbc, cmp, esr while on abx -Right knee swelling has been improving with less pain -Medically stable to be discharged -We will have antibiotic IV for a total of 6 weeks Wheezing-resolved - no shortness of breath - nebs as needed - encouraged incentive spirometry use - CXR in AM-Improving Infiltrative change right base -No more wheezing and/or shortness of breath CAD s/p CABG - continue aspirin (twice daily for DVT ppx) and b-mitra - noted statin intolerance -No acute symptoms -Electrolytes are normal HTN - BP stable, continue Coreg DVT ppx - ASA 81mg BID FULL CODE DISPOSITION Medically stable Disposition as per Ortho Vital Signs: Date Time Temp Pulse Resp B/P (MAP) Pulse Ox O2 Delivery O2 Flow Rate FiO2 09/26/17 14:57 37.2 59 20 167/82 (110) 96 Room Air 8/7/18 13:42 37.2 60 20 97 Room Air 09/26/17 11:21 37.2 60 20 167/87 (113) 97 Room Air Free Flow/[place] 09/26/17 08:00 Room Air 09/26/17 07:36 36.9 67 20 150/83 (105) 96 Room Air 09/26/17 04:34 36.4 62 16 133/72 (92) 94 Room Air 09/26/17 00:00 Room Air 09/25/17 23:29 37.2 66 18 133/67 (89) 94 Room Air 09/25/17 20:09 96 Room Air 09/25/17 19:50 37.2 64 18 128/64 (85) 96 Room Air 09/25/17 15:20 37.3 63 16 92/53 (66) 96 Room Air
== END 2017-09-26 16:40 | disposition home health service (06) | DRG 486 ==
LOC: C.2T 18:44
PROVIDERS: ADMIT Orthopaedic Surgery; ATTEND Orthopaedic Surgery
PROC: 0SPC09Z Removal of Liner from Right Knee Joint, Open Approach (ICD-10-PCS; principal; 2017-09-23 07:30)
PROC: 0SUV09Z Supplement Right Knee Joint, Tibial Surface with Liner, Open Approach (ICD-10-PCS; principal; 2017-09-23 07:30)
PROC: 02HV33Z Insertion of Infusion Device into Superior Vena Cava, Percutaneous Approach (ICD-10-PCS; 2017-09-24)
DX: T84.53XA Infection and inflammatory reaction due to internal right knee prosthesis, initial encounter (principal); D62 Acute posthemorrhagic anemia; I10 Essential (primary) hypertension; E78.00 Pure hypercholesterolemia, unspecified; N40.0 Benign prostatic hyperplasia without lower urinary tract symptoms; I25.10 Atherosclerotic heart disease of native coronary artery without angina pectoris; R06.2 Wheezing; Z96.653 Presence of artificial knee joint, bilateral; Y79.2 Prosthetic and other implants, materials and accessory orthopedic devices associated with adverse incidents; Y83.1 Surgical operation with implant of artificial internal device as the cause of abnormal reaction of the patient, or of later complication, without mention of misadventure at the time of the procedure; Z79.82 Long term (current) use of aspirin; Z79.899 Other long term (current) drug therapy